=== PATIENT | male | born 1945 | race Caucasian/White ===

== ENCOUNTER 2016-11-28 07:35 | Day surgery (SDC) | payer MEDICARE ==
[2016-11-26 15:22] VITALS: BMI 26.5
[~2016-11-28 07:35] MED LIST: LACTATED RINGERS 1,000 ML IV SCH; LIDOCAINE 1% 20 ML VIAL (10MG/ML) FOR IV START INTRADERMA PRN
[2016-11-28 07:56] VITALS: RESP 16; TEMP 97.1
[2016-11-28] MEDS ORDERED: PROPOFOL 10 MG/ML 20 ML VIAL IV ONE (09:11)
[2016-11-28] MEDS ORDERED: LIDOCAINE 1% INJ 10MG/ML (20 ML MDV) ONE (09:11)
[2016-11-28] MEDS ORDERED: GLYCOPYRROLATE 0.2 MG/ML 2 ML VIAL ONE (09:11)
--- NOTE | 2016-11-28 09:24 | P.GSHP ---
History of Present Illness H&P Date: 11/28/16 Chief Complaint: Screening colonoscopy This is a 71-year-old male referred from Dr. Arron Caro. Patient safe for screening colonoscopy. He denies a significant GI complaints. This is his first colonoscopy. - Constitutional Constitutional: Reports as per HPI Past Medical History Past Medical History: Hyperlipidemia, Prostate Disorder Additional Past Medical History / Comment(s): PNEUMONIA 11/2015, IBS. History of Any Multi-Drug Resistant Organisms: None Reported Past Surgical History: Cholecystectomy, Orthopedic Surgery, Prostate Surgery Additional Past Surgical History / Comment(s): 10/19/15 ARTHRO OF RIGHT KNEE. PROSTATE SURGERY X 3., BILAT CATARACTS REMOVED, COLONOSCOPY Past Anesthesia/Blood Transfusion Reactions: No Reported Reaction Smoking Status: Former smoker - Past Family History Brother(s) Family Medical History: Coronary Artery Disease (CAD), Myocardial Infarction ([place] ) Father Additional Family Medical History / Comment(s): AORTIC ANEURYSM, NEVER RUPTURED Sister(s) Family Medical History: Cancer Additional Family Medical History / Comment(s): SISTER # 1 UTERINE CANCER. SISTER #2 BREAST CANCER Medications and Allergies Home Medications Medication Instructions Recorded Confirmed Type Atorvastatin [Lipitor] 20 mg PO QAM 10/12/15 11/28/16 History Cholestyramine (with Sugar) 4 gm PO DAILY 11/21/15 11/28/16 History [Cholestyramine Powder] Allergies Allergy/AdvReac Type Severity Reaction Status Date / Time No Known Allergies Allergy Verified 11/28/16 07:51 Surgical - Exam Vital Signs Temp Pulse Resp BP Pulse Ox 97.1 F L 57 L 16 143/72 95 11/28/16 07:54 11/28/16 07:54 11/28/16 07:54 11/28/16 07:54 11/28/16 07:54 - General well developed, no distress - Eyes PERRL - ENT normal pinna - Neck no masses - Respiratory normal expansion - Cardiovascular Rhythm: regular - Abdomen Abdomen: soft, non tender Assessment and Plan Plan: We'll perform screening colonoscopy.
--- NOTE | 2016-11-28 09:45 | P.OP ---
Date of Procedure: 11/28/16 Preoperative Diagnosis: Screening colonoscopy Postoperative Diagnosis: Sigmoid colon mass pathology pending Procedure(s) Performed: Colonoscopy Implants: Anesthesia: MAC Surgeon: Mykel Barker Pathology: other (Sigmoid colon mass) Condition: stable Disposition: PACU Indications for Procedure: Operative Findings: Description of Procedure: The patient's placed on the endoscopy table in the lateral position. He received IV sedation. Digital rectal exam was performed which revealed no abnormalities. The prostate was symmetric without nodules. The flexible colonoscope was then placed patient anus passed rotator entire colon. The ileocecal valve sutures. Scope was then withdrawn. The cecum, ascending colon , transverse colon appeared normal. In the descending colon there was some mild diverticular changes. The; there were more diverticula changes seen. And at the 30 cm carlos there was a large tumor seen this occupied approximately 50% of the lumen of the colon. This area is biopsied. It was too large to remove. The scope. The scope was withdrawn and remainder of the sigmoid colon and rectum appeared normal. The tumor was marked with the ink spot. The scope was withdrawn for patient.
[2016-11-28 10:00] VITALS: BP 125/77; PULSE 64
== END 2016-11-28 10:27 | disposition home or self-care (01) ==
LOC: ORWHC2ENDO 07:35
PROVIDERS: ATTEND Surgery
DX: Z12.11 Encounter for screening for malignant neoplasm of colon (principal); C18.7 Malignant neoplasm of sigmoid colon; E78.5 Hyperlipidemia, unspecified; Z87.891 Personal history of nicotine dependence; Z79.899 Other long term (current) drug therapy
CPT/HCPCS: 88305; 45380; 45381; J2001; J2704; 44404

== ENCOUNTER → 2016-12-09 | Outpatient (CLI) | payer MEDICARE | END | disposition home or self-care (01) | LOC: LABPAT 14:43 | PROVIDERS: ATTEND Surgery | DX: Z01.810 Encounter for preprocedural cardiovascular examination (principal) | CPT/HCPCS: 93005 ==

== ENCOUNTER 2016-12-11 09:59 | Inpatient (IN) | payer MEDICARE ==
[~2016-12-11 09:59] MED LIST changes: +DEXAMETHASONE SOD PHOSPHATE 10 MG/ML 1 ML VIAL IV ONE; +HEPARIN SODIUM,PORCINE 5,000 UNIT/ML 1 ML VIAL SQ ONE; +HYDROmorphone 1 MG/ML 1 ML SYRINGE IVP PRN; +MIDAZOLAM 2 MG/2 ML VIAL IV PRN; +ONDANSETRON 4 MG/2 ML VIAL IVP ONE; +SCOPOLAMINE 1.5MG/72HR PATCH TRANSDERM ONE; +ceFAZolin 2 GM in SODIUM CHLORIDE 0.9% 100 ML IVPB ONE; +metroNIDAZOLE-NS PMX 500 MG in SALINE 1 100ML.BAG IVPB ONE
[2016-12-11] MEDS ORDERED: MIDAZOLAM 2 MG/2 ML VIAL IV ONE ×2 (14:37→14:42)
[2016-12-11] MEDS ORDERED: fentaNYL (PF) 50 MCG/ML 2 ML AMP IV ONE ×2 (14:37→14:42)
[2016-12-11] MEDS ORDERED: ONDANSETRON 4 MG/2 ML VIAL IVP PRN ×2 (15:14→18:38)
[2016-12-11] MEDS ORDERED: diphenhydrAMINE 50 MG/ML 1 ML VIAL IVP PRN (15:14)
[2016-12-11] MEDS ORDERED: NALOXONE 0.4 MG/ML 1 ML VIAL IV PRN (15:14)
--- NOTE | 2016-12-11 15:28 | P.GSHP ---
History of Present Illness H&P Date: 12/11/16 Chief Complaint: Sigmoid colon cancer This a 71-year-old male who underwent recent colonoscopy. 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 He presents today for low anterior resection. Patient aware the risks of surgery including colostomy. Past Medical History Past Medical History: Hyperlipidemia, Prostate Disorder Additional Past Medical History / Comment(s): PNEUMONIA 11/2015, IBS. History of Any Multi-Drug Resistant Organisms: None Reported Past Surgical History: Cholecystectomy, Orthopedic Surgery, Plyoromyotomy, Prostate Surgery Additional Past Surgical History / Comment(s): 11/28/16 COLONOSCOPY POSITIVE FOR CA. 10/19/15 ARTHRO OF RIGHT KNEE. PROSTATE SURGERY X 3(BPH). BILAT CATARACTS REMOVED, COLONOSCOPY Past Anesthesia/Blood Transfusion Reactions: No Reported Reaction Past Psychological History: No Psychological Hx Reported Smoking Status: Former smoker Past Alcohol Use History: None Reported Additional Past Alcohol Use History / Comment(s): SMOKING: (QUIT 35 YRS AGO ( 1981), SMOKED FOR 10 YRS, PPD:1) Past Drug Use History: None Reported - Past Family History Brother(s) Family Medical History: Coronary Artery Disease (CAD), Myocardial Infarction ([place] ) Father Additional Family Medical History / Comment(s): AORTIC ANEURYSM, NEVER RUPTURED Sister(s) Family Medical History: Cancer Additional Family Medical History / Comment(s): SISTER # 1 UTERINE CANCER. SISTER #2 BREAST CANCER Medications and Allergies Home Medications Medication Instructions Recorded Confirmed Type Atorvastatin [Lipitor] 20 mg PO QAM 10/12/15 12/09/16 History Cholestyramine (with Sugar) 4 gm PO DAILY 11/21/15 12/09/16 History [Cholestyramine Powder] Allergies Allergy/AdvReac Type Severity Reaction Status Date / Time No Known Allergies Allergy Verified 12/11/16 13:58 Surgical - Exam Vital Signs Temp Pulse Resp BP Pulse Ox 97.6 F 57 L 16 133/67 95 12/11/16 14:02 12/11/16 14:02 12/11/16 14:02 12/11/16 14:02 12/11/16 14:02 - General well developed, no distress - Eyes PERRL - ENT normal pinna - Neck no masses - Respiratory normal expansion - Cardiovascular Rhythm: regular - Abdomen Abdomen: soft, non tender Assessment and Plan Plan: Sigmoid colon cancer. We'll perform low anterior resection
[2016-12-11] MEDS ORDERED: SUCCINYLCHOLINE CHLORIDE 100 MG/5 ML SYR IV ONE (16:34)
[2016-12-11] MEDS ORDERED: PHENYLEPHRINE-0.9% NACL SYG 1 MG/10 ML SYRINGE ONE (16:34)
[2016-12-11] MEDS ORDERED: NEOSTIGMINE 1 MG/ML 10 ML VIAL ONE (16:34)
[2016-12-11] MEDS ORDERED: LIDOCAINE 1% INJ 10MG/ML (20 ML MDV) ONE (16:34)
[2016-12-11] MEDS ORDERED: fentaNYL (PF) 50 MCG/ML 2 ML AMP ONE (16:34)
[2016-12-11] MEDS ORDERED: GLYCOPYRROLATE 0.2 MG/ML 2 ML VIAL ONE (16:34)
[2016-12-11] MEDS ORDERED: PROPOFOL 10 MG/ML 20 ML VIAL IV ONE (16:34)
[2016-12-11] MEDS ORDERED: ROCURONIUM BROMIDE 10 MG/ML 10 ML VIAL IV ONE (16:34)
[2016-12-11] MEDS ORDERED: LACTATED RINGERS 1,000 ML IV ONE (17:45)
[2016-12-11] MEDS: BUPIVACAINE (PF) 0.5% 37.5 ML, fentaNYL (PF) 625 MCG in SODIUM CHLORIDE 0.9% 200 ML EPIDURAL PRN ×2 (18:30→19:08)
[2016-12-11] MEDS ORDERED: HYDROmorphone 1 MG/ML 1 ML SYRINGE IVP PRN (18:38)
[2016-12-11] MEDS ORDERED: BENZOCAINE/MENTHOL LOZENG 1 EACH LOZENGE MUCOUS MEM PRN (18:38)
--- NOTE | 2016-12-11 18:38 | P.OP ---
Date of Procedure: 12/11/16 Preoperative Diagnosis: Colon cancer Postoperative Diagnosis: Colon cancer Procedure(s) Performed: Low anterior resection Implants: Anesthesia: ROBERTO Surgeon: Mykel Barker Estimated Blood Loss (ml): 50 Pathology: other (Sigmoid colon) Condition: stable Disposition: PACU Indications for Procedure: Operative Findings: Description of Procedure: The patient's placed on the operating table in the supine position. He received general anesthesia. His abdomen was prepped and draped usual sterile fashion. The abdomen was entered through a low midline incision. The Bookwalter retractors placed a wound. The abdomen was explored. The liver felt normal. The small bowel appeared normal. The right colon transverse colon and descending colon appeared normal. The sigmoid colon was adherent to the lateral pelvic wall.; Had been tattooed. The tattoo carlos was proximal to the lesion. The lesion could be palpated through the sigmoid colon. The sigmoid colon was immobilized medially by dividing the adhesions to the sigmoid colon. And then the; was transected using the GI stapler. After the proximal sigmoid colon was transected. Using the LigaSure device the mesentery the; was divided down to the mesorectum and the rectum was transected with a GI stapler. The pursestring device was placed on the proximal colon and then the pursestring was opened and the anvil for the 25 mm EEA stapler was placed into the colon and then the pursestring was secured. The executive marketing assistant placed the EEA stapler in the anus and then the spike was driven through the rectal staple line. The amylase connected to the stapler kelby and closed and fired the stapler was withdrawn. 2 intact tissue rings were withdrawn. Using a HIDA The proximal colon was occluded and then using a rigid sigmoidoscope the rectum was insufflated with air. There is enough air insufflation that the air with escape from the anus. There is no evidence of any extravasation of air at the anastomosis. At this point the abdomen was irrigated. The fascia was closed with looped #1 PDS suture. Skin was closed kelby. Patient was sent to recovery room stable condition.
[2016-12-11] MEDS: D5-0.45% NACL WITH KCL 20MEQ/L 1,000 ML IV SCH (20:24)
[2016-12-11 21:04] LABS: Anion Gap 8 mmol/L; Blood Urea Nitrogen 14 mg/dL (9-20); Calcium 8.4 mg/dL (8.4-10.2); Carbon Dioxide 24 mmol/L (22-30); Chloride 106 mmol/L (98-107); Glucose 135 mg/dL (74-99); Non-African American GFR(MDRD) 58 (>60 ml/min/1.73 sqM); Potassium 4.4 mmol/L (3.5-5.1); Sodium 138 mmol/L (137-145)
[2016-12-11 21:28] LABS: Basophils % (A) 0 %; CH 30.4; CHCM 33.3; Eosinophils % (A) 0 %; HCT 46.8 % (39.0-53.0); HDW 2.47; HGB 15.2 gm/dL (13.0-17.5); Luc # (Auto) 0.03; Luc % (Auto) 0; Lymphocytes # (A) 1.2 k/uL (1.0-4.8); Lymphocytes % (A) 8 %; MCH 29.7 pg (25.0-35.0); MCHC 32.4 g/dL (31.0-37.0); MCV 91.6 fL (80.0-100.0); Mean Platelet Volume 7.3; Monocytes # (A) 0.3 k/uL (0-1.0); Monocytes % (A) 2 %; Neutrophils # (A) 14.4 k/uL (1.3-7.7); Neutrophils % (A) 90 %; RDW 13.7 % (11.5-15.5); WBC (Perox) 15.48
[2016-12-11] MEDS: HEPARIN SODIUM,PORCINE 5,000 UNIT/ML 1 ML VIAL SQ SCH (23:32)
[2016-12-12] MEDS: D5-0.45% NACL WITH KCL 20MEQ/L 1,000 ML IV SCH ×2 (03:44→12:12)
[2016-12-12] MEDS: HEPARIN SODIUM,PORCINE 5,000 UNIT/ML 1 ML VIAL SQ SCH ×3 (08:22→23:15)
--- NOTE | 2016-12-12 09:13 | P.PN ---
Progress Note - Text Postop day 1 status post colectomy, under general endotracheal anesthesia and epidural catheter placed for postoperative analgesia, vital signs stable, visual and verbal scale 0/10, patient on continuous infusion of fentanyl/ bupivacaine at 7 mL per hour , epidural site. No erythema, no tenderness, patient had no motor deficit. Assessment and plan= acute postop pain , adequate pain control will continue the same management, continue epidural infusion fentanyl/bupivacaine at 7 mL
--- NOTE | 2016-12-12 17:56 | P.PN ---
Progress Note - Text The patient is postoperative day 1 from low anterior resection for colon cancer. He is doing quite well. He's been a bleeding polyp. On exam his vital signs are stable. His abdomen soft. His incision site is clean dry and intact. Patient will remain on clear liquid diet. Hopefully he'll be discharged home the next 48-72 hours.
[2016-12-12] MEDS: BUPIVACAINE (PF) 0.5% 37.5 ML, fentaNYL (PF) 625 MCG in SODIUM CHLORIDE 0.9% 200 ML EPIDURAL PRN (18:26)
[2016-12-13] MEDS: D5-0.45% NACL WITH KCL 20MEQ/L 1,000 ML IV SCH ×4 (06:06→21:40)
[2016-12-13] MEDS: HEPARIN SODIUM,PORCINE 5,000 UNIT/ML 1 ML VIAL SQ SCH ×3 (07:47→23:37)
--- NOTE | 2016-12-13 09:37 | P.PN ---
Progress Note - Text Postop day 2 from low anterior resection, epidural catheter inserted for postop pain control. Epidural solution: Bupivacaine 0.075 % with fentanyl 2.5 MCG's/ml Patient pain is well controlled with visual analog score of 0-1/10. Reports some pain with movement. No nausea vomiting, weakness or numbness in the legs or headache reported by the patient. Slight itching present. Plan: To continue the epidural infusion at the current rate.
[2016-12-13] MEDS: NALBUPHINE 10 MG/ML AMPUL IV PRN ×2 (11:08→20:23)
--- NOTE | 2016-12-13 16:46 | P.PN ---
Subjective Principal diagnosis: The patient is status post low anterior resection of the colon for colon cancer The patient is seen on rounds. He's tolerating clear liquids and is hungry. Pain is well-controlled. No nausea or vomiting. He has been ambulating in the halls. Objective - Vital Signs Vital signs: Vital Signs Temp 97.4 F L 12/13/16 14:22 Pulse 52 L 12/13/16 14:22 Resp 16 12/13/16 14:22 BP 141/64 12/13/16 14:22 Pulse Ox 95 12/13/16 14:22 Intake & Output 12/12/16 12/13/16 12/13/16 18:59 06:59 18:59 Intake Total 9902 492 2221 Output Total 1800 1450 Balance 1000 -1320 225 Intake: Intake, IV Titration 1000 875 Amount D5-0.45% NaCl with KCl 1000 875 20Meq/l 1,000 ml @ 125 mls/hr IV .Q8H [facility] Rx#: [id number] Oral 800 Other 480 Output: Urine 1800 1450 Other: Voiding Method Indwelling Catheter Indwelling Catheter Indwelling Catheter - Constitutional General appearance: Present: cooperative, no acute distress - Respiratory Respiratory: bilateral: CTA - Gastrointestinal General gastrointestinal: Present: decreased bowel sounds, soft Localized gastrointestinal: surgical scar: diffuse (Dressing is intact with some bloody drainage) - Labs CBC & Chem 7: 12/11/16 20:36 12/11/16 20:36 Assessment and Plan (1) Colon cancer Status: Acute Plan: We will advance his diet. Encouraged activity. Anesthesia was monitoring the epidural. Progressing well.
[2016-12-13] MEDS: BUPIVACAINE (PF) 0.5% 37.5 ML, fentaNYL (PF) 625 MCG in SODIUM CHLORIDE 0.9% 200 ML EPIDURAL PRN (19:52)
[2016-12-14] MEDS: D5-0.45% NACL WITH KCL 20MEQ/L 1,000 ML IV SCH ×2 (05:47→12:00)
[2016-12-14 08:31] LABS: CH 30.3; CHCM 32.8; HCT 43.1 % (39.0-53.0); HDW 2.42; MCH 30.2 pg (25.0-35.0); MCHC 32.6 g/dL (31.0-37.0); MCV 92.9 fL (80.0-100.0); Mean Platelet Volume 7.6; RBC 4.64 m/uL (4.30-5.90); RDW 13.5 % (11.5-15.5); WBC 9.4 k/uL (3.8-10.6)
[2016-12-14] MEDS: HEPARIN SODIUM,PORCINE 5,000 UNIT/ML 1 ML VIAL SQ SCH ×3 (08:51→23:51)
[2016-12-14 09:08] LABS: Anion Gap 7 mmol/L; Blood Urea Nitrogen 10 mg/dL (9-20); Calcium 8.6 mg/dL (8.4-10.2); Carbon Dioxide 25 mmol/L (22-30); Chloride 106 mmol/L (98-107); Glucose 142 mg/dL (74-99); Non-African American GFR(MDRD) >60 (>60 ml/min/1.73 sqM); Potassium 4.8 mmol/L (3.5-5.1); Sodium 138 mmol/L (137-145)
--- NOTE | 2016-12-14 10:05 | P.PN ---
Progress Note - Text 09 Anesthesia POD 3. Status Post colectomy under general endotracheal anesthesia with an epidrual catheter placed at approximately T12 for post surgical pain releif. VAS (1, 3) with Bupivicaine 0.0625 % and fentanyl 2.5 mcg / cc running at [7] cc / hr. Lower extremity strength (4/4). No sedation. Site looks OK. Assessment: Adequate pain relief. Plan: Discontinue epidural catheter today was alternative analgesia by surgeon or hospitalist.
[2016-12-14] MEDS: NALBUPHINE 10 MG/ML AMPUL IV PRN (11:10)
--- NOTE | 2016-12-14 14:56 | P.PN ---
Subjective Principal diagnosis: The patient is status post low anterior resection of the colon for colon cancer The patient is doing well. His catheter was removed this morning. There was some leakage around it. Rating a diet. No nausea or vomiting. Objective - Vital Signs Vital signs: Vital Signs Temp 98 F 12/14/16 13:57 Pulse 55 L 12/14/16 13:57 Resp 16 12/14/16 13:57 BP 134/71 12/14/16 13:57 Pulse Ox 94 L 12/14/16 13:57 Intake & Output 12/13/16 12/14/16 12/14/16 18:59 06:59 18:59 Intake Total 1675 1528.033 980 Output Total 1450 2500 1100 Balance 225 -971.967 -120 Intake: Intake, IV Titration 875 1178.033 800 Amount Bupivacaine (Pf) 0.5% 37. 178.033 5 ml fentaNYL (PF) 625 mcg In Sodium Chloride 0. 9% 200 ml @ Per Protocol EPIDURAL .Q0M PR[facility] Rx#: [id number] D5-0.45% NaCl with KCl 875 1000 800 20Meq/l 1,000 ml @ 125 mls/hr IV .Q8H [facility] Rx#: [id number] Oral 800 350 180 Output: Urine 1450 2500 1100 Uretheral (Powers) 1100 Other: Voiding Method Indwelling Catheter Indwelling Catheter Indwelling Catheter # Voids 3 - Constitutional General appearance: Present: cooperative, no acute distress - Respiratory Respiratory: bilateral: CTA - Cardiovascular Rhythm: regular - Gastrointestinal General gastrointestinal: Present: normal bowel sounds, soft Localized gastrointestinal: surgical scar: diffuse (Dressing is intact with dried blood) - Labs CBC & Chem 7: 12/14/16 08:19 12/14/16 08:19 Labs: Abnormal Lab Results - Last 24 Hours (Table) 12/14/16 Range/Units 08:19 Glucose 142 H (74-99) mg/dL Assessment and Plan (1) Colon cancer Status: Acute Plan: Hep-Lock IV. Monitoring to make sure easily able to urinate okay. Anticipate discharge in the next day or 2.
--- NOTE | 2016-12-15 07:16 | PN ---
DATE OF SERVICE: 12/14/16 I am covering for Dr. Mendoza. This 71-year-old gentleman was admitted after low anterior resection for possible colon cancer is being closely monitored. No chest pain. No palpitations. No fever. PHYSICAL EXAMINATION: On exam, alert and oriented times three. Pulse 55. Blood pressure 130/77. Respiratory rate 16. Temperature 97 degrees. Pulse ox 94% on room air. HEENT: Conjunctivae normal. NECK: No JVD. Cardiovascular: S1, S2 muffled. Respiratory: Breath sounds diminished at the bases. A few scattered rhonchi and no crackles. Abdomen soft. Status post surgery. Legs, no edema. No swelling. Nervous system: No focal deficits. LABS: CBC within normal limits. ASSESSMENT: 1. Status post low anterior resection for colon cancer. 2. Hyperlipidemia. 3. History of pneumonia. 4. History of cholecystectomy. RECOMMENDATIONS AND DISCUSSION: In this 71 -year-old gentleman presented with multiple complex medical issues. We will monitor the patient closely. Continue the current medications, continue with symptomatic treatment. Incentive spirometry. White count is normalized at this time. Continue the rest of the medication. DVT prophylaxis. We will follow the patient closely with surgery. Further recommendations to follow. MTDD
[2016-12-15] MEDS: HEPARIN SODIUM,PORCINE 5,000 UNIT/ML 1 ML VIAL SQ SCH ×3 (07:50→23:32)
[2016-12-15] MEDS ORDERED: HYDROcodone/APAP 5-325MG 1 EACH TAB PO PRN ×2 (09:24)
--- NOTE | 2016-12-15 12:20 | P.PN ---
Subjective Principal diagnosis: The patient is status post low anterior resection of the colon for colon cancer The patient was seen earlier this morning. He was tolerating a diet. Not had any significant flatus or bowel movement. Not having any significant pain. Nursing called and said he did have a small loose bowel movement was some blood present. Objective - Vital Signs Vital signs: Vital Signs Temp 98.2 F 12/15/16 07:00 Pulse 58 L 12/15/16 08:00 Resp 16 12/15/16 08:00 BP 145/70 12/15/16 07:00 Pulse Ox 93 L 12/15/16 07:00 Intake & Output 12/14/16 12/15/16 12/15/16 18:59 06:59 18:59 Intake Total 1220 600 180 Output Total 1100 Balance 120 600 180 Intake: Intake, IV Titration 800 Amount D5-0.45% NaCl with KCl 800 20Meq/l 1,000 ml @ 125 mls/hr IV .Q8H [facility] Rx#: [id number] Oral 420 600 180 Output: Urine 1100 Uretheral (Powers) 1100 Other: Voiding Method Indwelling Catheter Toilet # Voids 2 4 1 # Bowel Movements 1 - Constitutional General appearance: Present: cooperative, no acute distress - Respiratory Respiratory: bilateral: CTA - Gastrointestinal General gastrointestinal: Present: distended (Mildly), normal bowel sounds, soft Localized gastrointestinal: surgical scar: diffuse (Dressings intact) - Labs CBC & Chem 7: 12/14/16 08:19 12/14/16 08:19 Assessment and Plan (1) Colon cancer Status: Acute Plan: Monitor for any signs of ongoing bleeding. He is progressing fairly well and the blood is likely just some oozing from his anastomosis.
[2016-12-15 17:08] LABS: Basophils # (A) 0.1 k/uL (0-0.2); Basophils % (A) 1 %; CH 29.9; CHCM 33.1; Eosinophils # (A) 0.4 k/uL (0-0.7); Eosinophils % (A) 5 %; HCT 45.5 % (39.0-53.0); HDW 2.37; HGB 15.5 gm/dL (13.0-17.5); Luc # (Auto) 0.16; Luc % (Auto) 2; Lymphocytes # (A) 2.7 k/uL (1.0-4.8); Lymphocytes % (A) 28 %; MCH 30.8 pg (25.0-35.0); MCV 90.7 fL (80.0-100.0); Mean Platelet Volume 7.3; Monocytes # (A) 0.8 k/uL (0-1.0); Monocytes % (A) 8 %; Neutrophils # (A) 5.5 k/uL (1.3-7.7); Neutrophils % (A) 57 %; RBC 5.02 m/uL (4.30-5.90); RDW 12.9 % (11.5-15.5); WBC 9.6 k/uL (3.8-10.6); WBC (Perox) 9.59
[2016-12-15 17:15] LABS: Prothrombin Time 10.1 sec (9.0-12.0)
[2016-12-15 17:16] LABS: Partial Thromboplastin Time 23.6 sec (22.0-30.0)
--- NOTE | 2016-12-16 06:43 | PN ---
DATE OF SERVICE: 12/15/2016 I am covering for Dr. Mendoza. This 71-year-old gentleman admitted after low anterior resection also complaining of some bleeding per rectum. The hemoglobin was 14 yesterday. No chest pain or palpitation. No fever. On exam, alert and oriented x3. The pulse is 57, blood pressure 157/75, respirations 17, temperature 98 degrees, pulse ox 94% on room air. HEENT: Conjunctivae clear. NECK: No jugular venous distention. CARDIOVASCULAR: S1 and S2, muffled. RESPIRATORY: Breath sounds diminished at the bases. No rhonchi, no crackles. ABDOMEN: Soft. Status post surgery. Bowel sounds present. LEGS: No edema, no swelling. NERVOUS SYSTEM: No focal deficits. LABS: WBC 9.4 and hemoglobin 14 yesterday. ASSESSMENT: 1. Status post low anterior resection for colon cancer. 2. Rule out a lower gastrointestinal bleed. 3. Hyperlipidemia. 4. History of pneumonia. 5. History of cholecystectomy. RECOMMENDATIONS AND DISCUSSION: Recommend to continue current medications. Continue with monitoring and symptomatic treatment. Otherwise, at this time I would recommend repeat hemoglobin. Continue the rest of the medications and Dr. Mendoza will follow. Would also recommend PT coagulation workup also. Otherwise see orders for further details. Discussed with staff. LO
[2016-12-16 06:54] LABS: Basophils # (A) 0.1 k/uL (0-0.2); Basophils % (A) 1 %; CH 30.4; Eosinophils # (A) 0.7 k/uL (0-0.7); Eosinophils % (A) 8 %; HCT 48.4 % (39.0-53.0); HDW 2.32; HGB 15.4 gm/dL (13.0-17.5); Luc # (Auto) 0.18; Luc % (Auto) 2; Lymphocytes # (A) 2.6 k/uL (1.0-4.8); Lymphocytes % (A) 28 %; MCH 29.5 pg (25.0-35.0); MCHC 31.8 g/dL (31.0-37.0); MCV 92.7 fL (80.0-100.0); Mean Platelet Volume 7.4; Monocytes # (A) 0.7 k/uL (0-1.0); Monocytes % (A) 8 %; Neutrophils # (A) 4.9 k/uL (1.3-7.7); Neutrophils % (A) 54 %; RBC 5.22 m/uL (4.30-5.90); WBC 9.1 k/uL (3.8-10.6); WBC (Perox) 9.17
[2016-12-16 07:05] VITALS: RESP 18
[2016-12-16] MEDS: HEPARIN SODIUM,PORCINE 5,000 UNIT/ML 1 ML VIAL SQ SCH ×2 (08:15→15:47)
[2016-12-16 14:27] VITALS: BP 137/67; PULSE 62; TEMP 98.1
--- NOTE | 2016-12-16 16:55 | P.DS ---
Providers Date of admission: 12/11/16 12:40 Expected date of discharge: 12/16/16 Attending physician: Mykel Barker Consults: 12/12/16 08:53 Consult Physician Routine Consulting Provider: Arron Mendoza Reason/Comments: Medical management Do you want consulting provider notified?: Yes Primary care physician: Arron Mendoza [place] [facility] Course: This is a 71-year-old male who was diagnosed with colon cancer. Patient underwent low anterior resection. Please see hospital chart for details. Procedures: Low anterior resection Patient Condition at Discharge: Good Plan - Discharge Summary New Discharge Prescriptions: New Docusate [Colace] 100 mg PO BID #20 capsule HYDROcodone/APAP 7.5-325MG [Hiddenite 7.5] 1 each PO Q4H PRN #60 tab PRN Reason: Pain No Action Atorvastatin [Lipitor] 20 mg PO QAM Cholestyramine (with Sugar) [Cholestyramine Powder] 4 gm PO DAILY Discharge Medication List Atorvastatin [Lipitor] 20 mg PO QAM 10/12/15 [History] Cholestyramine (with Sugar) [Cholestyramine Powder] 4 gm PO DAILY 11/21/15 [ History] Docusate [Colace] 100 mg PO BID #20 capsule 12/16/16 [Rx] HYDROcodone/APAP 7.5-325MG [Hiddenite 7.5] 1 each PO Q4H PRN #60 tab 12/16/16 [Rx] Follow up Appointment(s)/Referral(s): Mykel Barker MD [STAFF PHYSICIAN] - 1 Week Patient Instructions/Handouts: Laparoscopic Bowel Resection (DC) Discharge Disposition: HOME SELF-CARE
== END 2016-12-16 17:37 | disposition home or self-care (01) | DRG 330 ==
LOC: EDSTATUS 11:05 → 2ORWHC 12:40 → 3SUR 18:12
PROVIDERS: ADMIT Surgery; ATTEND Surgery
PROC: 0DTN0ZZ Resection of Sigmoid Colon, Open Approach (ICD-10-PCS; principal; 2016-12-11 15:40)
DX: C18.7 Malignant neoplasm of sigmoid colon (principal); K62.5 Hemorrhage of anus and rectum; E78.5 Hyperlipidemia, unspecified; K58.9 Irritable bowel syndrome, unspecified; G89.18 Other acute postprocedural pain; N42.9 Disorder of prostate, unspecified; Z79.899 Other long term (current) drug therapy; Z90.49 Acquired absence of other specified parts of digestive tract; Z87.891 Personal history of nicotine dependence; Z87.01 Personal history of pneumonia (recurrent); Z98.42 Cataract extraction status, left eye; Z98.41 Cataract extraction status, right eye
CPT/HCPCS: 36415; 80048; 85025; 85027; 85610; 85730; 86850; 86900; 86901; 88309; 93005

== ENCOUNTER 2018-01-21 08:11 | Day surgery (SDC) | payer MEDICARE ==
[2018-01-14 15:37] VITALS: BMI 25.8
[~2018-01-21 08:11] MED LIST changes: -DEXAMETHASONE SOD PHOSPHATE 10 MG/ML 1 ML VIAL IV ONE; -HEPARIN SODIUM,PORCINE 5,000 UNIT/ML 1 ML VIAL SQ ONE; -HYDROmorphone 1 MG/ML 1 ML SYRINGE IVP PRN; -LACTATED RINGERS 1,000 ML IV SCH; -MIDAZOLAM 2 MG/2 ML VIAL IV PRN; -ONDANSETRON 4 MG/2 ML VIAL IVP ONE; -SCOPOLAMINE 1.5MG/72HR PATCH TRANSDERM ONE; -ceFAZolin 2 GM in SODIUM CHLORIDE 0.9% 100 ML IVPB ONE; -metroNIDAZOLE-NS PMX 500 MG in SALINE 1 100ML.BAG IVPB ONE
[2018-01-21 10:29] VITALS: TEMP 97.7
[2018-01-21] MEDS: LACTATED RINGERS 1,000 ML IV SCH ×2 (10:39→12:05)
[2018-01-21] MEDS ORDERED: PROPOFOL 10 MG/ML 20 ML VIAL IV ONE (12:07)
--- NOTE | 2018-01-21 12:12 | P.GSHP ---
History of Present Illness H&P Date: 01/21/18 Chief Complaint: History sigmoidof colon cancer 's is a 72-year-old male history: Cancer. Patient resents today for colonoscopy. He denies a significant GI complaints. Past Medical History Past Medical History: Cancer, Hyperlipidemia, Prostate Disorder Additional Past Medical History / Comment(s): PNEUMONIA 11/2015, IBS. COLON CANCER History of Any Multi-Drug Resistant Organisms: None Reported Past Surgical History: Cholecystectomy, Orthopedic Surgery, Prostate Surgery Additional Past Surgical History / Comment(s): 10/19/15 ARTHRO OF RIGHT KNEE. PROSTATE SURGERY X 3., BILAT CATARACTS REMOVED, COLONOSCOPY, COLON RESECTION R/ T COLON CANCER Past Anesthesia/Blood Transfusion Reactions: No Reported Reaction Smoking Status: Former smoker - Past Family History Brother(s) Family Medical History: Coronary Artery Disease (CAD), Myocardial Infarction ([place] ) Father Additional Family Medical History / Comment(s): AORTIC ANEURYSM, NEVER RUPTURED Sister(s) Family Medical History: Cancer Additional Family Medical History / Comment(s): SISTER # 1 UTERINE CANCER. SISTER #2 BREAST CANCER Medications and Allergies Home Medications Medication Instructions Recorded Confirmed Type Atorvastatin [Lipitor] 20 mg PO QAM 10/12/15 01/21/18 History Allergies Allergy/AdvReac Type Severity Reaction Status Date / Time No Known Allergies Allergy Verified 01/21/18 10:33 Surgical - Exam Vital Signs Temp Pulse Resp BP Pulse Ox 97.7 F 55 L 16 143/65 96 01/21/18 10:28 01/21/18 10:28 01/21/18 10:28 01/21/18 10:28 01/21/18 10:28 - General well developed - Eyes PERRL - ENT normal pinna - Neck no masses - Respiratory normal expansion - Cardiovascular Rhythm: regular - Abdomen Abdomen: soft, non tender Assessment and Plan Assessment: History of sigmoid colon cancer. We'll perform colonoscopy.
--- NOTE | 2018-01-21 12:25 | P.OP ---
Date of Procedure: 01/21/18 Preoperative Diagnosis: History of colon cancer Postoperative Diagnosis: Diverticulosis Procedure(s) Performed: Colonoscopy Anesthesia: MAC Surgeon: Mykel Barker Pathology: none sent Condition: stable Disposition: PACU Description of Procedure: The patient's placed on the endoscopy table in the lateral position. He received IV sedation. Digital rectal exam was performed which revealed no abnormalities. Flexible colonoscope was then placed patient anus and passed throughout the entire colon. The ileocecal valve was visualized. Cecum was examined. There was initially thought to be a small polyp in the cecum. However this was a suction polyp. The scope was withdrawn the remainder of the ascending colon and transverse colon appeared normal. In the descending colon there was mild diverticulosis. A shunt had a colorectal anastomosis. This was visualized the remaining rectum appeared normal. The scope was withdrawn for patient.
[2018-01-21 12:31] VITALS: RESP 18
[2018-01-21 13:06] VITALS: BP 152/72; PULSE 57
== END 2018-01-21 13:19 | disposition home or self-care (01) ==
LOC: ORWHC2ENDO 08:11
PROVIDERS: ATTEND Surgery
DX: Z12.11 Encounter for screening for malignant neoplasm of colon (principal); K57.30 Diverticulosis of large intestine without perforation or abscess without bleeding; Z85.038 Personal history of other malignant neoplasm of large intestine; Z90.49 Acquired absence of other specified parts of digestive tract; E78.5 Hyperlipidemia, unspecified; N42.9 Disorder of prostate, unspecified; Z79.899 Other long term (current) drug therapy; Z87.891 Personal history of nicotine dependence; I10 Essential (primary) hypertension
CPT/HCPCS: J2704; G0105

== ENCOUNTER 2019-02-18 08:08 | Day surgery (SDC) | payer MEDICARE ==
[2019-02-17 08:30] VITALS: BMI 26.6
[~2019-02-18 08:08] MED LIST changes: +LACTATED RINGERS 1,000 ML IV SCH
[2019-02-18 08:44] VITALS: RESP 16; TEMP 97.5
[2019-02-18] MEDS ORDERED: GLYCOPYRROLATE 0.2 MG/ML 2 ML VIAL ONE (11:50)
[2019-02-18] MEDS ORDERED: LIDOCAINE 1% INJ 10MG/ML (20 ML MDV) ONE (11:50)
[2019-02-18] MEDS ORDERED: IV FLUID CONTINUATION 1,000 ML IV ONE (11:50)
[2019-02-18] MEDS ORDERED: PROPOFOL 10 MG/ML 20 ML VIAL IV ONE (11:50)
--- NOTE | 2019-02-18 11:53 | P.GSHP ---
History of Present Illness H&P Date: 02/18/19 Chief Complaint: History of colon cancer This a 74-year-old male. History of sigmoid colon cancer. Patient rents today for colonoscopy. Denies a significant GI complaints. Past Medical History Past Medical History: Cancer, Hyperlipidemia, Prostate Disorder, Skin Disorder Additional Past Medical History / Comment(s): PNEUMONIA 2016, IBS, COLON CANCER, rash all over and hands burn and itch, cholesterol controled by diet, History of Any Multi-Drug Resistant Organisms: None Reported Past Surgical History: Bowel Resection, Cholecystectomy, Orthopedic Surgery, Prostate Surgery Additional Past Surgical History / Comment(s): arthroscopy RIGHT KNEE. PROSTATE SURGERY X 3., BILAT CATARACTS REMOVED, COLONOSCOPY, COLON RESECTION R/T COLON CANCER Past Anesthesia/Blood Transfusion Reactions: No Reported Reaction Smoking Status: Former smoker - Past Family History Brother(s) Family Medical History: Coronary Artery Disease (CAD), Myocardial Infarction ([place]) Father Additional Family Medical History / Comment(s): AORTIC ANEURYSM, NEVER RUPTURED Sister(s) Family Medical History: Cancer Additional Family Medical History / Comment(s): SISTER # 1 UTERINE CANCER. SISTER #2 BREAST CANCER Medications and Allergies Home Medications Medication Instructions Recorded Confirmed Type Fexofenadine/Pseudoephedrine 1 each PO DAILY 02/17/19 02/18/19 History [Lexi-D 24 Hour Tablet] Allergies Allergy/AdvReac Type Severity Reaction Status Date / Time No Known Allergies Allergy Verified 02/17/19 08:19 Surgical - Exam Vital Signs Temp Pulse Resp BP Pulse Ox 97.5 F L 51 L 16 140/62 97 02/18/19 08:43 02/18/19 08:43 02/18/19 08:43 02/18/19 08:43 02/18/19 08:43 - General well developed, well nourished, no distress - Eyes PERRL - ENT normal pinna - Neck no masses - Respiratory normal expansion - Cardiovascular Rhythm: regular - Abdomen Abdomen: soft, non tender Assessment and Plan Assessment: History of colon cancer. We'll perform colonoscopy.
--- NOTE | 2019-02-18 12:00 | P.OP ---
Date of Procedure: 02/18/19 Preoperative Diagnosis: History of colon cancer Postoperative Diagnosis: Diverticulosis Procedure(s) Performed: Colonoscopy Anesthesia: MAC Surgeon: Mykel Barker Pathology: none sent Condition: stable Disposition: PACU Description of Procedure: The patient's placed on the endoscopy table in the lateral position. He received IV sedation. Digital rectal exam was performed which revealed no abnormalities. Flexible colonoscope was then placed patient anus passed throughout the entire colon. The ileocecal valve was visualized. The cecum, ascending and transverse colon appeared normal. The descending colon had a few scattered diverticula. A shunt a previous sigmoid colectomy. The colorectal a nastomosis visualized. This appeared normal. The rectum appeared normal. Scope was withdrawn for patient. There is no incision any tumor in the entire colon.
[2019-02-18 12:36] VITALS: BP 118/65; PULSE 53
== END 2019-02-18 12:51 | disposition home or self-care (01) ==
LOC: ORWHC2ENDO 08:08
PROVIDERS: ATTEND Surgery
DX: Z12.11 Encounter for screening for malignant neoplasm of colon (principal); K57.30 Diverticulosis of large intestine without perforation or abscess without bleeding; K58.9 Irritable bowel syndrome, unspecified; E78.5 Hyperlipidemia, unspecified; L98.9 Disorder of the skin and subcutaneous tissue, unspecified; Z85.038 Personal history of other malignant neoplasm of large intestine; Z90.49 Acquired absence of other specified parts of digestive tract; Z79.899 Other long term (current) drug therapy; Z87.01 Personal history of pneumonia (recurrent); Z87.438 Personal history of other diseases of male genital organs; Z98.41 Cataract extraction status, right eye; Z98.42 Cataract extraction status, left eye; Z87.891 Personal history of nicotine dependence; Z82.49 Family history of ischemic heart disease and other diseases of the circulatory system; Z80.3 Family history of malignant neoplasm of breast; Z80.49 Family history of malignant neoplasm of other genital organs
CPT/HCPCS: J2001; J2704; G0105; 45378

== ENCOUNTER → 2020-04-18 | Outpatient (CLI) | payer MEDICARE ==
--- NOTE | 2020-04-19 09:24 | ECHOF ---
Referral Reason:R01.1 murmur MEASUREMENTS -------- HEIGHT: 162.6 cm WEIGHT: 86.2 kg BP: RVIDd: 3.1 cm (< 3.3) IVSd: 1.1 cm (0.6 - 1.1) LVIDd: 4.8 cm (3.9 - 5.3) LVPWd: 0.9 cm (0.6 - 1.1) IVSs: 1.6 cm LVIDs: 2.8 cm LVPWs: 1.3 cm LA Diam: 4.0 cm (2.7 - 3.8) LAESV Index (A-L): 24.13 ml/m Ao Diam: 2.9 cm (2.0 - 3.7) MV EXCURSION: 15.965 mm (> 18.000) MV EF SLOPE: 54 mm/s (70 - 150) EPSS: 0.4 cm MV E Maxim: 0.48 m/s MV DecT: 355 ms MV A Mxaim: 1.08 m/s MV E/A Ratio: 0.45 AV maxP.22 mmHg AV meanP.03 mmHg RAP: 5.00 mmHg RVSP: 30.44 mmHg FINDINGS -------- Sinus rhythm. This was a technically adequate study. The left ventricular size is normal. There is mild concentric left ventricular hypertrophy. Overa ll left ventricular systolic function is normal with, an EF between 55 - 60 %. The right ventricle is normal in size. Normal LA size by volume 22+/-6 ml/m2. The right atrial size is normal. There is moderate aortic valve sclerosis. There is moderate aortic stenosis present. Peak/mean gr adient across the Aortic Valve is 46.22mmHg / 18.03mmHg. The mitral valve leaflets are mildly thickened. Mild mitral regurgitation is present. The tricuspid valve appears structurally normal. Mild tricuspid regurgitation present. Right vent ricular systolic pressure is normal at < 35 mmHg. There is no pulmonic regurgitation present. The aortic root size is normal. There is no pericardial effusion. CONCLUSIONS -------- 1. There is mild concentric left ventricular hypertrophy. 2. Overall left ventricular systolic function is normal with, an EF between 55 - 60 %. 3. Normal LA size by volume 22+/-6 ml/m2. 4. There is moderate aortic valve sclerosis. 5. There is moderate aortic stenosis present. 6. Peak/mean gradient across the Aortic Valve is 46.22mmHg / 18.03mmHg. 7. Mild mitral regurgitation is present. 8. Mild tricuspid regurgitation present. 9. There is no pericardial effusion. [employer] SAFETY INSPECTOR: Mary Cruz RDCS
== END | disposition home or self-care (01) ==
LOC: RADECHMAIN 11:50
PROVIDERS: ATTEND Family Medicine
DX: I08.1 Rheumatic disorders of both mitral and tricuspid valves (principal)
CPT/HCPCS: 93306

== ENCOUNTER 2021-02-02 18:53 | Emergency (ER) | payer MEDICARE ==
[2021-02-02] MEDS ORDERED: SODIUM CHLORIDE 0.9% 500 ML 500 ML IV STA (19:33)
[2021-02-02] MEDS ORDERED: SODIUM CHLORIDE 0.9% 1,000 ML IV STA (19:33)
--- NOTE | 2021-02-02 19:36 | ED ---
Fever HPI - General Chief Complaint: Fever Stated Complaint: chills Time Seen by Provider: 02/02/21 19:20 Source: patient, RN notes reviewed, old records reviewed Mode of arrival: ambulatory Limitations: no limitations - History of Present Illness Initial Comments: 76-year-old male history of urinary tract infection the past also history of colon cancer who states he had the onset about 3 AM this morning of fevers chills shakes nausea vomiting this morning burning with urination no diarrhea no overt abdominal pain at this time no cough he has a slight runny nose which he believes is from seasonal ALLERGIES. No exposure to COVID-19 and he is aware of. No other complaints or modifying factors MD Complaint: fever, other - Related Data Home Medications Medication Instructions Recorded Confirmed Fexofenadine/Pseudoephedrine 1 each PO DAILY 02/17/19 02/18/19 [Lexi-D 24 Hour Tablet] Previous Rx's Medication Instructions Recorded Cephalexin [Keflex] 500 mg PO Q6HR 1 Days #40 cap 02/02/21 Allergies Allergy/AdvReac Type Severity Reaction Status Date / Time No Known Allergies Allergy Verified 02/02/21 19:07 Review of Systems ROS Statement: Those systems with pertinent positive or pertinent negative responses have been documented in the HPI. ROS Other: All systems not noted in ROS Statement are negative. Past Medical History Past Medical History: Cancer, Hyperlipidemia, Prostate Disorder, Skin Disorder Additional Past Medical History / Comment(s): PNEUMONIA 2016, IBS, COLON CANCER, rash all over and hands burn and itch, cholesterol controled by diet, History of Any Multi-Drug Resistant Organisms: None Reported Past Surgical History: Bowel Resection, Cholecystectomy, Orthopedic Surgery, Prostate Surgery Additional Past Surgical History / Comment(s): arthroscopy RIGHT KNEE. PROSTATE SURGERY X 3., BILAT CATARACTS REMOVED, COLONOSCOPY, COLON RESECTION R/T COLON CANCER Past Anesthesia/Blood Transfusion Reactions: No Reported Reaction Past Psychological History: No Psychological Hx Reported Past Alcohol Use History: Rare Past Drug Use History: None Reported - Past Family History Brother(s) Family Medical History: Coronary Artery Disease (CAD), Myocardial Infarction ([place]) Father Additional Family Medical History / Comment(s): AORTIC ANEURYSM, NEVER RUPTURED Sister(s) Family Medical History: Cancer Additional Family Medical History / Comment(s): SISTER # 1 UTERINE CANCER. SISTER #2 BREAST CANCER General Exam - General Exam Comments Initial Comments: This is a well-developed well-nourished awake alert oriented 3 male Limitations: no limitations General appearance: alert, in no apparent distress Head exam: Present: atraumatic, normocephalic, normal inspection Eye exam: Present: normal appearance, PERRL, EOMI. Absent: scleral icterus, conjunctival injection, periorbital swelling ENT exam: Present: mucous membranes dry Neck exam: Present: normal inspection. Absent: tenderness, meningismus, lymphadenopathy Respiratory exam: Present: normal lung sounds bilaterally. Absent: respiratory distress, wheezes, rales, rhonchi, stridor Cardiovascular Exam: Present: regular rate, normal rhythm, normal heart sounds. Absent: systolic murmur, diastolic murmur, rubs, gallop, clicks GI/Abdominal exam: Present: soft, normal bowel sounds. Absent: distended, tenderness, guarding, rebound, rigid Extremities exam: Present: normal inspection, full ROM, normal capillary refill. Absent: tenderness, pedal edema, joint swelling, calf tenderness Back exam: Present: normal inspection Neurological exam: Present: alert, oriented X3, CN II-XII intact Psychiatric exam: Present: normal affect, normal mood Skin exam: Present: warm, dry, intact, normal color. Absent: rash Course Vital Signs 02/02/21 02/02/21 19:03 19:30 Temperature 99 F 98.8 F Pulse Rate 92 62 Respiratory 20 16 Rate Blood Pressure 118/54 127/60 O2 Sat by Pulse 98 94 L Oximetry Medical Decision Making - Medical Decision Making I did a long discussion with the patient and his regarding the findings. Patient does have evidence of a UTI his viral testing was negative. Patient would like to go home he will be discharged we did discuss return parameters. She'll be discharged on oral medication is a follow-up with his doctor return when necessary we did encourage fluids. - Lab Data Result diagrams: 02/02/21 19:41 02/02/21 19:41 Lab Results 02/02/21 02/02/21 02/02/21 Range/Units 19:41 19:41 19:41 WBC 11.0 H (3.8-10.6) k/uL RBC 4.46 (4.30-5.90) m/uL Hgb 13.7 (13.0-17.5) gm/dL Hct 41.6 (39.0-53.0) % MCV 93.2 (80.0-100.0) fL MCH 30.7 (25.0-35.0) pg MCHC 32.9 (31.0-37.0) g/dL RDW 12.6 (11.5-15.5) % Plt Count 176 (150-450) k/uL MPV 7.8 Neutrophils % 82 % Lymphocytes % 8 % Monocytes % 8 % Eosinophils % 1 % Basophils % 0 % Neutrophils # 9.1 H (1.3-7.7) k/uL Lymphocytes # 0.8 L (1.0-4.8) k/uL Monocytes # 0.9 (0-1.0) k/uL Eosinophils # 0.1 (0-0.7) k/uL Basophils # 0.0 (0-0.2) k/uL Sodium 133 L (137-145) mmol/L Potassium 3.6 (3.5-5.1) mmol/L Chloride 104 (98-107) mmol/L Carbon Dioxide 22 (22-30) mmol/L Anion Gap 7 mmol/L BUN 18 (9-20) mg/dL Creatinine 1.08 (0.66-1.25) mg/dL Est GFR (CKD-EPI)AfAm 76 (>60 ml/min/1.73 sqM) Est GFR (CKD-EPI)NonAf 66 (>60 ml/min/1.73 sqM) Glucose 123 H (74-99) mg/dL Plasma Lactic Acid Pap[place] (0.7-2.0) mmol/L Calcium 8.5 (8.4-10.2) mg/dL Total Bilirubin 2.2 H (0.2-1.3) mg/dL AST 23 (17-59) U/L ALT 17 (4-49) U/L Alkaline Phosphatase 40 (38-126) U/L Total Protein 6.1 L (6.3-8.2) g/dL Albumin 3.5 (3.5-5.0) g/dL Urine Color Yellow Urine Appearance Cloudy (Clear) Urine pH 5.5 (5.0-8.0) Ur Specific [place] 1.031 (1.001-1.035) Urine Protein 1+ H (Negative) Urine Glucose (UA) Negative (Negative) Urine Ketones Negative (Negative) Urine Blood Large H (Negative) Urine Nitrite Positive (Negative) Urine Bilirubin Negative (Negative) Urine Urobilinogen <2.0 (<2.0) mg/dL Ur Leukocyte Esterase Large H (Negative) Urine RBC >182 H (0-5) /hpf Urine WBC >182 H (0-5) /hpf Urine WBC Clumps Moderate H (None) /hpf Urine Bacteria Occasional H (None) /hpf Urine Mucus Occasional H (None) /hpf Urine Yeast (Budding) Occasional H (None) /hpf Influenza Type A (PCR) (Not Detectd) Influenza Type B (PCR) (Not Detectd) RSV (PCR) (Not Detectd) SARS-CoV-2 (PCR) (Not Detectd) 02/02/21 02/02/21 Range/Units 19:41 19:41 WBC (3.8-10.6) k/uL RBC (4.30-5.90) m/uL Hgb (13.0-17.5) gm/dL Hct (39.0-53.0) % MCV (80.0-100.0) fL MCH (25.0-35.0) pg MCHC (31.0-37.0) g/dL RDW (11.5-15.5) % Plt Count (150-450) k/uL MPV Neutrophils % % Lymphocytes % % Monocytes % % Eosinophils % % Basophils % % Neutrophils # (1.3-7.7) k/uL Lymphocytes # (1.0-4.8) k/uL Monocytes # (0-1.0) k/uL Eosinophils # (0-0.7) k/uL Basophils # (0-0.2) k/uL Sodium (137-145) mmol/L Potassium (3.5-5.1) mmol/L Chloride (98-107) mmol/L Carbon Dioxide (22-30) mmol/L Anion Gap mmol/L BUN (9-20) mg/dL Creatinine (0.66-1.25) mg/dL Est GFR (CKD-EPI)AfAm (>60 ml/min/1.73 sqM) Est GFR (CKD-EPI)NonAf (>60 ml/min/1.73 sqM) Glucose (74-99) mg/dL Plasma Lactic Acid [place] 0.9 (0.7-2.0) mmol/L Calcium (8.4-10.2) mg/dL Total Bilirubin (0.2-1.3) mg/dL AST (17-59) U/L ALT (4-49) U/L Alkaline Phosphatase (38-126) U/L Total Protein (6.3-8.2) g/dL Albumin (3.5-5.0) g/dL Urine Color Urine Appearance (Clear) Urine pH (5.0-8.0) Ur Specific [place] (1.001-1.035) Urine Protein (Negative) Urine Glucose (UA) (Negative) Urine Ketones (Negative) Urine Blood (Negative) Urine Nitrite (Negative) Urine Bilirubin (Negative) Urine Urobilinogen (<2.0) mg/dL Ur Leukocyte Esterase (Negative) Urine RBC (0-5) /hpf Urine WBC (0-5) /hpf Urine WBC Clumps (None) /hpf Urine Bacteria (None) /hpf Urine Mucus (None) /hpf Urine Yeast (Budding) (None) /hpf Influenza Type A (PCR) Not Detected (Not Detectd) Influenza Type B (PCR) Not Detected (Not Detectd) RSV (PCR) Not Detected (Not Detectd) SARS-CoV-2 (PCR) Not Detected (Not Detectd) - Radiology Data Radiology results: report reviewed (Imaging reviewed no acute findings.), image reviewed Disposition Clinical Impression: Urinary tract infection, Febrile illness, acute Disposition: HOME SELF-CARE Condition: Good Instructions (If sedation given, give patient instructions): Fever in Adults (ED), Urinary Tract Infection in Men (ED), Dysuria (ED) Prescriptions: Cephalexin [Keflex] 500 mg PO Q6HR 1 Days #40 cap Is patient prescribed a controlled substance at d/c from ED?: No Referrals: Arron Mendoza DO [Primary Care Provider] - 1-2 days
--- NOTE | 2021-02-02 20:12 | XR ---
EXAMINATION TYPE: XR chest 1V portable DATE OF EXAM: 02/02/2021 COMPARISON: 11/30/2015 HISTORY: Fever TECHNIQUE: FINDINGS: Heart and mediastinum are normal. Lungs are clear. Diaphragm is normal. Bony thorax is norm al. There are chest leads. IMPRESSION: Normal chest. No change.
[2021-02-02 20:16] LABS: Appearance,Urine Cloudy (Clear); Bacteria,Urine Occasional /hpf; Bilirubin,Urine Negative (Negative); Blood,Urine Large (Negative); Budding Yeast,Urine Occasional /hpf; Color,Urine Yellow; Glucose,Urine (UA) Negative (Negative); Ketones,Urine Negative (Negative); Leukocyte Esterase,Urine Large (Negative); Mucus,Urine Occasional /hpf; Nitrite,Urine Positive (Negative); PH, Urine 5.5 (5.0-8.0); Protein,Urine 1+ (Negative); RBC,Urine >182 /hpf (0-5); Specific Gravity,Urine 1.031 (1.001-1.035); Urobilinogen,Urine <2.0 mg/dL (<2.0); WBC,Urine >182 /hpf (0-5)
[2021-02-02 20:32] LABS: Basophils % (A) 0 %; Eosinophils # (A) 0.1 k/uL (0-0.7); Eosinophils % (A) 1 %; HCT 41.6 % (39.0-53.0); HGB 13.7 gm/dL (13.0-17.5); Lymphocytes # (A) 0.8 k/uL (1.0-4.8); Lymphocytes % (A) 8 %; MCH 30.7 pg (25.0-35.0); MCHC 32.9 g/dL (31.0-37.0); MCV 93.2 fL (80.0-100.0); Mean Platelet Volume 7.8; Monocytes # (A) 0.9 k/uL (0-1.0); Monocytes % (A) 8 %; Neutrophils # (A) 9.1 k/uL (1.3-7.7); Neutrophils % (A) 82 %; Platelet Count 176 k/uL (150-450); RBC 4.46 m/uL (4.30-5.90); RDW 12.6 % (11.5-15.5)
[2021-02-02] MEDS ORDERED: cefTRIAXone IN SWFI 1,000 MG/10 ML SYRINGE IVP STA (20:38)
[2021-02-02 20:42] LABS: Albumin 3.5 g/dL (3.5-5.0); Calcium 8.5 mg/dL (8.4-10.2); Potassium 3.6 mmol/L (3.5-5.1); Total Bilirubin 2.2 mg/dL (0.2-1.3); Total Protein 6.1 g/dL (6.3-8.2)
[2021-02-02] MEDS ORDERED: CEPHALEXIN 500 MG CAP PO STA (21:27)
[2021-02-02 22:12] VITALS: BP 117/61; PULSE 54; RESP 18; TEMP 97.9
== END 2021-02-02 22:12 | disposition home or self-care (01) ==
LOC: EC 18:53
DX: N39.0 Urinary tract infection, site not specified (principal); R11.2 Nausea with vomiting, unspecified; Z90.49 Acquired absence of other specified parts of digestive tract; Z20.822 Contact with and (suspected) exposure to COVID-19
CPT/HCPCS: 36415; 80053; 83605; 85025; 81001; 87040; 87086; 87636; 71045; 99284; 96374; 96361; J0696

== ENCOUNTER → 2021-04-04 | Outpatient (CLI) | payer MEDICARE ==
--- NOTE | 2021-04-04 11:41 | CT ---
EXAMINATION TYPE: CT urogram wo/w con DATE OF EXAM: 04/04/2021 COMPARISON: None. HISTORY: Gross Hematuria CT DLP: 2626 mGycm, Automated Exposure Control for Dose Reduction was Utilized. CONTRAST: CT scan of the abdomen and pelvis is performed without oral and with IV Contrast, patient injected wi th 100 mL of Isovue 300. Urogram protocol. Three-D reconstructed images created on an independent wor kstation and reviewed. FINDINGS: Exam slightly suboptimal as the technologist forgot to perform noncontrast images per kel l protocol. KUB: No definitive renal calculi on initial cortical medullary postcontrast images. There is symmetri c uptake and excretion without concerning solid or cystic renal mass or hydronephrosis seen bilateral ly. No intraluminal calculus in the bladder. No suspicious eccentric mass. There is satisfactory opac ification of bilateral ureters without obstructing calculus or mass. LUNG BASES: No significant abnormality is appreciated. LIVER/GB: Cholecystectomy clips. PANCREAS: No significant abnormality is seen. SPLEEN: No significant abnormality is seen. ADRENALS: No significant abnormality is seen. BOWEL: Suboptimal evaluation of bowel without enteric contrast. Small sized hiatal hernia. No suspici ous small or large bowel dilatation. Diverticula in the sigmoid colon. Prior colonic resection and re -anastomosis sigmoid colon left pelvis axial image 109. PROSTATE/SEMINAL VESICLES: Markedly enlarged heterogeneous prostate consistent with BPH. LYMPH NODES: No greater than 1cm abdominal or pelvic lymph nodes are appreciated. OSSEOUS STRUCTURES: Moderate to severe disc space narrowing L2-L3 level with endplate sclerosis. OTHER: Moderate calcified plaque of the infrarenal aorta extends into branch vessels. IMPRESSION: Source of hematuria not identified.
== END | disposition home or self-care (01) ==
LOC: RADCTMAIN 09:20
PROVIDERS: ATTEND Urology
DX: R31.0 Gross hematuria (principal)
CPT/HCPCS: 82565; 84520; 74178; 36415; 74400; Q9967

== ENCOUNTER 2022-09-12 07:34 | Day surgery (SDC) | payer MEDICARE ==
[2022-09-06 17:46] VITALS: BMI 26.2
[2022-09-12] MEDS ORDERED: LACTATED RINGERS 1,000 ML IV SCH (08:04)
[2022-09-12 08:09] VITALS: TEMP 97.9
[2022-09-12] MEDS ORDERED: PROPOFOL 10 MG/ML 20 ML VIAL IV ONE (08:54)
--- NOTE | 2022-09-12 08:58 | P.GSHP ---
History of Present Illness H&P Date: 09/12/22 Chief Complaint: History of colon cancer This a 69-year-old male who presents today for colonoscopy. Patient previous history of sigmoid colon cancer. His surgery was 2017. Patient has no significant GI complaints. Past Medical History Past Medical History: Cancer, Hyperlipidemia, Pneumonia, Prostate Disorder, Skin Disorder Additional Past Medical History / Comment(s): IBS, COLON CANCER, rash all over hands burn and itch (just happens on occasion) History of Any Multi-Drug Resistant Organisms: None Reported Past Surgical History: Bowel Resection, Cholecystectomy, Orthopedic Surgery, Prostate Surgery Additional Past Surgical History / Comment(s): ARTHROSCOPY RIGHT KNEE, PROSTATE SURGERY X 3, BILAT CATARACTS REMOVED, COLONOSCOPY, COLON RESECTION R/T COLON CANCER Past Anesthesia/Blood Transfusion Reactions: No Reported Reaction Past Psychological History: No Psychological Hx Reported Smoking Status: Former smoker Past Alcohol Use History: None Reported Additional Past Alcohol Use History / Comment(s): QUIT smoking 1981, SMOKED FOR 10 YRS, 1 PPD Past Drug Use History: None Reported - Past Family History Brother(s) Family Medical History: Coronary Artery Disease (CAD), Myocardial Infarction ([place]) Father Additional Family Medical History / Comment(s): AORTIC ANEURYSM, NEVER RUPTURED Sister(s) Family Medical History: Cancer Additional Family Medical History / Comment(s): SISTER # 1 UTERINE CANCER. SISTER #2 BREAST CANCER Medications and Allergies Home Medications Medication Instructions Recorded Confirmed Type Atorvastatin [Lipitor] 5 mg PO HS 09/06/22 09/12/22 History Nf-Prevalite Powder 1 / PO DIRECTED 09/06/22 09/12/22 History Allergies Allergy/AdvReac Type Severity Reaction Status Date / Time No Known Allergies Allergy Verified 09/12/22 08:04 Surgical - Exam Vital Signs Temp Pulse Resp BP Pulse Ox 97.9 F 59 L 18 142/65 95 09/12/22 08:03 09/12/22 08:03 09/12/22 08:03 09/12/22 08:03 09/12/22 08:03 - General well developed, well nourished, no distress - Eyes PERRL - ENT normal pinna - Neck no masses - Respiratory normal expansion - Cardiovascular Rhythm: regular - Abdomen Abdomen: soft, non tender Assessment and Plan Assessment: History of sigmoid colon cancer. We'll perform colonoscopy.
--- NOTE | 2022-09-12 09:10 | P.OP ---
Date of Procedure: 09/12/22 Preoperative Diagnosis: History of colon cancer Postoperative Diagnosis: Diverticulosis No evidence of recurrent colon cancer Procedure(s) Performed: Colonoscopy Anesthesia: MAC Surgeon: Mykel Barker Pathology: none sent Condition: stable Disposition: PACU Description of Procedure: The patient's placed on the endoscopy table in the lateral position. He received IV sedation. Digital rectal exam was performed. This revealed no ebonized. The possible colonoscope was then placed patient anus and passed throughout the entire colon. The ileocecal valve was visualized. The cecum, ascending and transverse colon appeared normal. In the descending colon was a few scattered diverticuli. The scope was brought back and the rectum and the colorectal vessels was visualized. Rectum appeared normal. This appeared normal. Scope withdrawn for patient.
[2022-09-12 09:39] VITALS: BP 119/68; PULSE 56; RESP 16
== END 2022-09-12 09:40 | disposition home or self-care (01) ==
LOC: ORWHC2ENDO 07:34
PROVIDERS: ATTEND Surgery
DX: Z12.11 Encounter for screening for malignant neoplasm of colon (principal); K57.30 Diverticulosis of large intestine without perforation or abscess without bleeding; E78.5 Hyperlipidemia, unspecified; Z90.49 Acquired absence of other specified parts of digestive tract; Z85.038 Personal history of other malignant neoplasm of large intestine; Z98.890 Other specified postprocedural states; Z82.49 Family history of ischemic heart disease and other diseases of the circulatory system; Z87.891 Personal history of nicotine dependence
CPT/HCPCS: G0105; J2704; 45378

== ENCOUNTER 2022-11-22 15:46 | Emergency (ER) | payer MEDICARE ==
[2022-11-22 15:58] VITALS: RESP 16
[2022-11-22 16:21] LABS: Basophils % (A) 0 %; Eosinophils # (A) 0.1 k/uL (0-0.7); Eosinophils % (A) 1 %; HCT 45.1 % (39.0-53.0); HGB 15.2 gm/dL (13.0-17.5); Lymphocytes # (A) 1.3 k/uL (1.0-4.8); Lymphocytes % (A) 8 %; MCH 31.3 pg (25.0-35.0); MCHC 33.8 g/dL (31.0-37.0); MCV 92.8 fL (80.0-100.0); Mean Platelet Volume 7.7; Monocytes # (A) 0.9 k/uL (0-1.0); Monocytes % (A) 5 %; Neutrophils # (A) 13.5 k/uL (1.3-7.7); Neutrophils % (A) 85 %; Platelet Count 180 k/uL (150-450); RBC 4.86 m/uL (4.30-5.90); RDW 12.7 % (11.5-15.5)
[2022-11-22 16:25] LABS: INR 1.1 (<1.2); Prothrombin Time 11.3 sec (9.0-12.0)
--- NOTE | 2022-11-22 16:30 | ED ---
Dizziness HPI - General Chief Complaint: Dizziness Stated Complaint: dehydration Source: patient Mode of arrival: ambulatory Limitations: no limitations - History of Present Illness Initial Comments: 77-year-old male presenting to the ED with complaints of intermittent dizziness, chills, and upset stomach. Now notes dysuria 3 days ago however states that he has been drinking large quantities of water and reports that this has since improved. Denies chest pain or shortness of breath. No other complaints - Related Data Home Medications Medication Instructions Recorded Confirmed Atorvastatin [Lipitor] 5 mg PO HS 09/06/22 09/12/22 Nf-Prevalite Powder 1 / PO DIRECTED 09/06/22 09/12/22 Previous Rx's Medication Instructions Recorded Ciprofloxacin 500 mg PO Q12HR 14 Days #140 ml 11/22/22 Allergies Allergy/AdvReac Type Severity Reaction Status Date / Time No Known Allergies Allergy Verified 09/12/22 08:04 Review of Systems ROS Statement: Those systems with pertinent positive or pertinent negative responses have been documented in the HPI. ROS Other: All systems not noted in ROS Statement are negative. Past Medical History Past Medical History: Cancer, Hyperlipidemia, Pneumonia, Prostate Disorder, Skin Disorder Additional Past Medical History / Comment(s): IBS, COLON CANCER, rash all over hands burn and itch (just happens on occasion) History of Any Multi-Drug Resistant Organisms: None Reported Past Surgical History: Bowel Resection, Cholecystectomy, Orthopedic Surgery, Prostate Surgery Additional Past Surgical History / Comment(s): ARTHROSCOPY RIGHT KNEE, PROSTATE SURGERY X 3, BILAT CATARACTS REMOVED, COLONOSCOPY, COLON RESECTION R/T COLON CANCER Past Anesthesia/Blood Transfusion Reactions: No Reported Reaction Past Psychological History: No Psychological Hx Reported Smoking Status: Former smoker Past Alcohol Use History: None Reported Past Drug Use History: None Reported - Past Family History Brother(s) Family Medical History: Coronary Artery Disease (CAD), Myocardial Infarction ([place]) Father Additional Family Medical History / Comment(s): AORTIC ANEURYSM, NEVER RUPTURED Sister(s) Family Medical History: Cancer Additional Family Medical History / Comment(s): SISTER # 1 UTERINE CANCER. SISTER #2 BREAST CANCER General Exam Limitations: no limitations General appearance: alert Eye exam: Present: PERRL, EOMI Respiratory exam: Present: normal lung sounds bilaterally Cardiovascular Exam: Present: regular rate, normal rhythm, systolic murmur Neurological exam: Present: alert, oriented X3, CN II-XII intact (Finger-nose, [id number], rapid alternating hand movements intact) Psychiatric exam: Present: normal affect, normal mood Skin exam: Present: warm, dry Course Vital Signs 11/22/22 15:54 Temperature 98.6 F Pulse Rate 70 Respiratory 16 Rate Blood Pressure 113/52 O2 Sat by Pulse 96 Oximetry Medical Decision Making - Medical Decision Making Was pt. sent in by a medical professional or institution (, LUIS, MANAGER DOCUMENT CONTROL, urgent care, hospital, or fpc...) When possible be specific @ -No Did you speak to anyone other than the patient for history (EMS, parent, family, police, friend...)? What history was obtained from this source @ -No Did you review nursing and triage notes (agree or disagree)? Why? @ -I reviewed and agree with nursing and triage notes Were old charts reviewed (outside hosp., previous admission, EMS record, old EKG, old radiological studies, urgent care reports/EKG's, fpc records)? Report findings @ -No old charts were reviewed Differential Diagnosis (chest pain, altered mental status, abdominal pain women, abdominal pain men, vaginal bleeding, weakness, fever, dyspnea, syncope, headache, dizziness, GI bleed, back pain, seizure, CVA, palpatations, mental health, musculoskeletal)? @ -Differential Altered Mental Status: Hypoglycemia, DKA, hypercapnia, ETOH, overdose, CO poisoning, trauma, myxedema coma, HTN encephalopathy, infection, encephalitis, psychosis, intercranial hemorrhage, hepatic encephalopathy, meningitis, CVA, this is not meant to be an all-inclusive list EKG interpreted by me (3pts min.). @ -EKG shows a sinus rhythm without acute ST or T-wave changes X-rays interpreted by me (1pt min.). @ -None done CT interpreted by me (1pt min.). @ -None done U/S interpreted by me (1pt. min.). @ -None done What testing was considered but not performed or refused? (CT, X-rays, U/S, labs)? Why? @ -None What meds were considered but not given or refused? Why? @ -None Did you discuss the management of the patient with other professionals (pro fessionals i.e. , LUIS, MANAGER DOCUMENT CONTROL, lab, RT, psych nurse, social work lecturer, grind operator, teacher, consumer loan officer, registered nurse hh case manager)? Give summary @ -No Was smoking cessation discussed for >3mins.? @ -No Was critical care preformed (if so, how long)? @ -No Were there social determinants of health that impacted care today? How? (Homelessness, low income, unemployed, alcoholism, drug addiction, transporta tion, low edu. Level, literacy, decrease access to med. care, shelter, rehab)? @ -No Was there de-escalation of care discussed even if they declined (Discuss DNR or withdrawal of care, Hospice)? DNR status @ -No What co-morbidities impacted this encounter? (DM, HTN, Smoking, COPD, CAD, Cancer, CVA, ARF, Chemo, Hep., AIDS, mental health diagnosis, sleep apnea, morbid obesity)? @ -None Was patient admitted / discharged? Hospital course, mention meds given and route, prescriptions, significant lab abnormalities, going to OR and other pertinent info. @ -Discharge. Laboratory studies significant for a white blood cell count of 16, urine showed 102 white blood cells, leukocyte esterase. Otherwise chemistry panel unremarkable. CT head showed no acute findings. Patient started on IV antibiotics here. And discharged with ciprofloxacin 500 mg twice a day for 14 d ays. Advised to follow up with PCP. Discussed return precautions with patient and who verbalizes agreement. Undiagnosed new problem with uncertain prognosis? @ -No Drug Therapy requiring intensive monitoring for toxicity (Heparin, Nitro, Insulin, Cardizem)? @ -No Were any procedures done? @ -No Diagnosis/symptom? @ -Urinary tract infection Acute, or Chronic, or Acute on Chronic? @ -Acute Uncomplicated (without systemic symptoms) or Complicated (systemic symptoms)? @ -Uncomplicated Side effects of treatment? @ -No Exacerbation, Progression, or Severe Exacerbation? @ -No Poses a threat to life or bodily function? How? (Chest pain, [place], [place], pneumonia, PE, COPD, DKA, ARF, appy, cholecystitis, CVA, Diverticulitis, Homicidal, Suicidal, threat to staff... and all critical care pts) @ -No - Lab Data Result diagrams: 11/22/22 16:05 11/22/22 16:05 Lab Results 11/22/22 11/22/22 11/22/22 Range/Units 15:59 16:05 16:05 WBC 16.0 H (3.8-10.6) k/uL RBC 4.86 (4.30-5.90) m/uL Hgb 15.2 (13.0-17.5) gm/dL Hct 45.1 (39.0-53.0) % MCV 92.8 (80.0-100.0) fL MCH 31.3 (25.0-35.0) pg MCHC 33.8 (31.0-37.0) g/dL RDW 12.7 (11.5-15.5) % Plt Count 180 (150-450) k/uL MPV 7.7 Neutrophils % 85 % Lymphocytes % 8 % Monocytes % 5 % Eosinophils % 1 % Basophils % 0 % Neutrophils # 13.5 H (1.3-7.7) k/uL Lymphocytes # 1.3 (1.0-4.8) k/uL Monocytes # 0.9 (0-1.0) k/uL Eosinophils # 0.1 (0-0.7) k/uL Basophils # 0.0 (0-0.2) k/uL PT 11.3 (9.0-12.0) sec INR 1.1 (<1.2) Sodium (137-145) mmol/L Potassium (3.5-5.1) mmol/L Chloride (98-107) mmol/L Carbon Dioxide (22-30) mmol/L Anion Gap mmol/L BUN (9-20) mg/dL Creatinine (0.66-1.25) mg/dL Est GFR (CKD-EPI)AfAm (>60 ml/min/1.73 sqM) Est GFR (CKD-EPI)NonAf (>60 ml/min/1.73 sqM) Glucose (74-99) mg/dL Calcium (8.4-10.2) mg/dL Total Bilirubin (0.2-1.3) mg/dL AST (17-59) U/L ALT (4-49) U/L Alkaline Phosphatase (38-126) U/L Troponin I (0.000-0.034) ng/mL Total Protein (6.3-8.2) g/dL Albumin (3.5-5.0) g/dL Urine Color Dark Brown Urine Appearance Turbid (Clear) Urine pH 5.5 (5.0-8.0) Ur Specific [place] 1.033 (1.001-1.035) Urine Protein 2+ H (Negative) Urine Glucose (UA) Negative (Negative) Urine Ketones Trace H (Negative) Urine Blood Large H (Negative) Urine Nitrite Negative (Negative) Urine Bilirubin Negative (Negative) Urine Urobilinogen <2.0 (<2.0) mg/dL Ur Leukocyte Esterase Large H (Negative) Urine RBC >182 H (0-5) /hpf Urine WBC 102 H (0-5) /hpf Urine WBC Clumps Occasional H (None) /hpf Ur Squamous Epith Cells 3 (0-4) /hpf Urine Mucus Many H (None) /hpf 11/22/22 11/22/22 Range/Units 16:05 16:05 WBC (3.8-10.6) k/uL RBC (4.30-5.90) m/uL Hgb (13.0-17.5) gm/dL Hct (39.0-53.0) % MCV (80.0-100.0) fL MCH (25.0-35.0) pg MCHC (31.0-37.0) g/dL RDW (11.5-15.5) % Plt Count (150-450) k/uL MPV Neutrophils % % Lymphocytes % % Monocytes % % Eosinophils % % Basophils % % Neutrophils # (1.3-7.7) k/uL Lymphocytes # (1.0-4.8) k/uL Monocytes # (0-1.0) k/uL Eosinophils # (0-0.7) k/uL Basophils # (0-0.2) k/uL PT (9.0-12.0) sec INR (<1.2) Sodium 134 L (137-145) mmol/L Potassium 4.6 (3.5-5.1) mmol/L Chloride 102 (98-107) mmol/L Carbon Dioxide 23 (22-30) mmol/L Anion Gap 9 mmol/L BUN 20 (9-20) mg/dL Creatinine 1.23 (0.66-1.25) mg/dL Est GFR (CKD-EPI)AfAm 65 (>60 ml/min/1.73 sqM) Est GFR (CKD-EPI)NonAf 56 (>60 ml/min/1.73 sqM) Glucose 119 H (74-99) mg/dL Calcium 8.8 (8.4-10.2) mg/dL Total Bilirubin 3.4 H (0.2-1.3) mg/dL AST 26 (17-59) U/L ALT 26 (4-49) U/L Alkaline Phosphatase 46 (38-126) U/L Troponin I <0.012 (0.000-0.034) ng/mL Total Protein 6.6 (6.3-8.2) g/dL Albumin 3.9 (3.5-5.0) g/dL Urine Color Urine Appearance (Clear) Urine pH (5.0-8.0) Ur Specific [place] (1.001-1.035) Urine Protein (Negative) Urine Glucose (UA) (Negative) Urine Ketones (Negative) Urine Blood (Negative) Urine Nitrite (Negative) Urine Bilirubin (Negative) Urine Urobilinogen (<2.0) mg/dL Ur Leukocyte Esterase (Negative) Urine RBC (0-5) /hpf Urine WBC (0-5) /hpf Urine WBC Clumps (None) /hpf Ur Squamous Epith Cells (0-4) /hpf Urine Mucus (None) /hpf Disposition Clinical Impression: UTI (urinary tract infection) Disposition: HOME SELF-CARE Condition: Good Instructions (If sedation given, give patient instructions): Dizziness (ED), Urinary Tract Infection in Men (ED) Additional Instructions: Please return to the Emergency Department if symptoms worsen or any other concerns. Prescriptions: Ciprofloxacin 500 mg PO Q12HR 14 Days #140 ml Is patient prescribed a controlled substance at d/c from ED?: No Referrals: Arron Mendoza DO [Primary Care Provider] - 1-2 days Time of Disposition: 18:52
[2022-11-22 16:34] LABS: ALT 26 U/L (4-49); AST 26 U/L (17-59); African American GFR (CKD) 65 (>60 ml/min/1.73 sqM); Albumin 3.9 g/dL (3.5-5.0); Alkaline Phosphatase 46 U/L (38-126); Anion Gap 9 mmol/L; Blood Urea Nitrogen 20 mg/dL (9-20); Calcium 8.8 mg/dL (8.4-10.2); Carbon Dioxide 23 mmol/L (22-30); Chloride 102 mmol/L (98-107); Glucose 119 mg/dL (74-99); Non-African American GFR(CKD) 56 (>60 ml/min/1.73 sqM); Potassium 4.6 mmol/L (3.5-5.1); Sodium 134 mmol/L (137-145); Total Bilirubin 3.4 mg/dL (0.2-1.3); Total Protein 6.6 g/dL (6.3-8.2)
[2022-11-22 16:53] LABS: Appearance,Urine Turbid (Clear); Bilirubin,Urine Negative (Negative); Blood,Urine Large (Negative); Color,Urine Dark Brown; Glucose,Urine (UA) Negative (Negative); Ketones,Urine Trace (Negative); Leukocyte Esterase,Urine Large (Negative); Mucus,Urine Many /hpf; Nitrite,Urine Negative (Negative); PH, Urine 5.5 (5.0-8.0); Protein,Urine 2+ (Negative); RBC,Urine >182 /hpf (0-5); Specific Gravity,Urine 1.033 (1.001-1.035); Squamous Epithelial Cell,Urine 3 /hpf (0-4); Urobilinogen,Urine <2.0 mg/dL (<2.0); WBC,Urine 102 /hpf (0-5)
[2022-11-22] MEDS ORDERED: LEVOFLOXACIN 750MG-D5W PMX 750 MG in DEXTROSE/WATER 1 150ML.BAG IVPB STA (17:27)
--- NOTE | 2022-11-22 18:16 | CT ---
EXAMINATION TYPE: CT brain cspine wo con CT DLP: 1597.3 mGycm, Automated exposure control for dose reduction was used. DATE OF EXAM: 11/22/2022 5:39 PM COMPARISON: None. CLINICAL INDICATION:Male, 77 years old with history of dizziness; Dizziness, headache TECHNIQUE: Brain: Multiple axial CT images of the brain were obtained without IV contrast. Cspine: Axial CT images from the skull base to the inferior aspect of T2 we obtained without intraven ous contrast. Coronal and sagittal reformatted images were also reviewed. FINDINGS: Brain: Extra-axial spaces: No abnormal extra-axial fluid collections. Ventricular system: Dilatation in proportion to cerebral atrophy. Cerebral parenchyma: Cerebral atrophy. No acute intraparenchymal hemorrhage or mass effect. The lizama -white junction is well differentiated. Cerebellum: Unremarkable. Mass effect: No evidence of midline shift. Intracranial vasculature: Atherosclerotic calcifications of the intracranial vessels. Soft tissues: Normal. Calvarium/osseous structures: No depressed skull fracture. Paranasal sinuses and mastoid air cells: Clear. Visualized orbits: Orbital contents are intact. Cervical spine: Fracture: None. Osseous structures: Multilevel degenerative disc disease changes with endplate spurring and disc oste ophyte complex's. Vertebral alignment: Straightening of the alignment. Spinal canal/Neural Foramina: Disc osteophyte complexes at C4-C5 through C6-C7 with at least mild spi nal canal stenosis. Facet joint uncovertebral joint arthropathy scattered throughout the cervical spi ne with varying degrees of neural foraminal stenosis. Neck soft tissues: Prevertebral soft tissues are within normal limits. Other: The airway is patent. The lung apices are clear. IMPRESSION: 1. No acute intracranial process. 2. No evidence of cervical spine fracture. 3. Moderate multilevel degenerative disc disease.
[2022-11-22 19:22] VITALS: BP 111/55; PULSE 76; TEMP 98.4
== END 2022-11-22 19:22 | disposition home or self-care (01) ==
LOC: EC 15:46
DX: N39.0 Urinary tract infection, site not specified (principal); E78.5 Hyperlipidemia, unspecified; Z79.899 Other long term (current) drug therapy; Z87.891 Personal history of nicotine dependence
CPT/HCPCS: 36415; 93005; 80053; 84484; 85025; 85610; 81001; 72125; 70450; 99284; 96365; J1956

== ENCOUNTER → 2024-06-09 | Outpatient (CLI) | payer MEDICARE ==
--- NOTE | 2024-06-09 20:22 | MR ---
EXAMINATION TYPE: MR knee LT wo con DATE OF EXAM: 06/09/2024 COMPARISON: Outside bilateral lateral knee x-rays June 04, 2024 HISTORY: left knee pain for about a month and a half. no known injury TECHNIQUE: Multiplanar, multisequence images of the knee is performed without IV contrast. FINDINGS: MEDIAL MENISCUS: Truncated appearance to posterior horn with abnormal signal extending to inferior ar ticular surface. LATERAL MENISCUS: Anterior and posterior horns are intact without tear. CRUCIATE LIGAMENTS: The anterior and posterior cruciate ligaments are intact and unremarkable. COLLATERAL LIGAMENTS: The medial collateral ligament and lateral collateral ligament complex are inta ct. Some increased signal surrounding fluid in the medial collateral ligament. Some increased signal and thickening of the proximal iliotibial band. EXTENSOR MECHANISM: Visualized quadriceps and patellar tendons are intact. EFFUSION: Small to moderate size suprapatellar joint effusion. POPLITEAL CYST: Moderate to large sized leaking septated popliteal/tejeda cyst. TRICOMPARTMENT SPACES: Moderate narrowing and mild spurring patellofemoral compartment. Moderate narr owing and mild/moderate spurring medial tibial femoral compartment. CARTILAGE: Cartilaginous loss medial tibial femoral compartment most prominent laterally. Correlation , with areas of full-thickness cartilaginous loss along the posterior patellar pole greatest medially . BONE MARROW SIGNAL: Small area increased T2 signal anterior medial aspect of the distal medial femora l condyle coronal image 17 measuring near 1.5 cm. OTHER: No additional significant abnormality is appreciated. IMPRESSION: 1. Full-thickness tear through the posterior horn medial meniscus. 2. At least moderate degenerative changes patellofemoral and medial tibiofemoral compartment as detai led above. Small focus of abnormal bone marrow edema anteromedial aspect of the distal medial femoral condyle noted. 3. [id number] MCL sprain injury. 4. Chronic iliotibial band sprain injury. 5. Itqpn-[id number]-[id number] sized suprapatellar joint effusion. 6. Moderate to large sized leaking multi-septated popliteal cyst. [facility], , 06/09/2024 8:19 PM
== END | disposition home or self-care (01) ==
LOC: RADMRIMAIN 20:00
PROVIDERS: ATTEND Orthopaedic Surgery
DX: S83.242A Other tear of medial meniscus, current injury, left knee, initial encounter (principal); M17.12 Unilateral primary osteoarthritis, left knee; M71.22 Synovial cyst of popliteal space [Baker], left knee; X58.XXXA Exposure to other specified factors, initial encounter

== ENCOUNTER → 2024-06-18 | Outpatient (CLI) | payer MEDICARE ==
[2024-06-18 15:16] LABS: BUN/Creat Ratio 14.92 Ratio (12.00-20.00); Blood Urea Nitrogen 17.9 mg/dL (9.0-27.0); Carbon Dioxide 23.1 mmol/L (21.6-31.8); Chloride 107 mmol/L (96-109); Chol/HDL Ratio 3.75 Ratio; Glucose 103 mg/dL (70-110); LDL Cholesterol,Calculated 98.3 mg/dL (0.0-131.0); Potassium 4.4 mmol/L (3.5-5.5); Sodium 142 mmol/L (135-145)
[2024-06-18 15:17] LABS: ALT 34 U/L (10-49); AST 30 U/L (14-35); Albumin 4.2 g/dL (3.8-4.9); Albumin/Globulin Ratio 1.83 Ratio (1.60-3.17); Alkaline Phosphatase 57 U/L (41-126); Calcium 9.3 mg/dL (8.7-10.3); Globulin 2.3 g/dL (1.6-3.3); Total Bilirubin 1.7 mg/dL (0.3-1.2); Total Protein 6.5 g/dL (6.2-8.2)
[2024-06-18 15:19] LABS: NT-Pro-B-Type Natriuretic Pept 67 pg/mL (0-450)
== END | disposition home or self-care (01) ==
LOC: LABWHC1 11:08
PROVIDERS: ATTEND Internal Medicine Interventional Cardiology
DX: I35.0 Nonrheumatic aortic (valve) stenosis (principal); E78.2 Mixed hyperlipidemia
CPT/HCPCS: 36415; 80053; 80061; 83880

== ENCOUNTER → 2024-07-14 | Outpatient (CLI) | payer MEDICARE ==
[2024-07-14 10:53] LABS: Basophils # (A) 0.09 X 10*3/uL (0.00-0.10); Basophils % (A) 1.1 %; Eosinophils # (A) 0.35 X 10*3/uL (0.04-0.35); Eosinophils % (A) 4.2 %; HCT 47.2 % (39.6-50.0); HGB 15.3 g/dL (13.0-17.0); Lymphocytes # (A) 2.89 X 10*3/uL (0.90-5.00); Lymphocytes % (A) 35.1 %; MCH 30.1 pg (27.0-32.0); MCHC 32.4 g/dL (32.0-37.0); MCV 92.9 FL (80.0-97.0); Mean Platelet Volume 10.6 FL (9.5-12.2); Monocytes # (A) 0.96 X 10*3/uL (0.20-1.00); Monocytes % (A) 11.7 %; NRBC Per 100 WBC 0 X 10*3/uL (0.00-0.01); Neutrophils % (A) 47.3 %; Platelet Count 264 X 10*3/uL (140-440); RBC 5.08 X 10*6/uL (4.40-5.60); RDW 12.6 % (11.5-14.5); WBC 8.24 X 10*3/uL (4.50-10.00)
[2024-07-14 10:55] LABS: Anion Gap 9.8 mmol/L (4.00-12.00); Carbon Dioxide 27.2 mmol/L (21.6-31.8); Potassium 4.6 mmol/L (3.5-5.5)
== END | disposition home or self-care (01) ==
LOC: LABWHC1 07:45
PROVIDERS: ATTEND Orthopaedic Surgery
DX: Z01.812 Encounter for preprocedural laboratory examination (principal); M23.92 Unspecified internal derangement of left knee
CPT/HCPCS: 36415; 80051; 85025

== ENCOUNTER 2024-08-04 08:48 | Day surgery (SDC) | payer MEDICARE ==
[2024-08-02 11:41] VITALS: BMI 26.6
--- NOTE | 2024-08-03 10:14 | HP ---
HISTORY AND PHYSICAL Surgery is scheduled for 08/04/2024. HISTORY OF PRESENT ILLNESS: Mathew Chris is an 79-year-old gentleman seen with progressive left knee pain. After having treatment options discussed, he elected to proceed with left knee arthroscopy. Consent regarding the procedure was obtained. Cardiac clearance was provided by Dr. Bermudez. PAST MEDICAL HISTORY: Cardiovascular disease, hypertension, and hyperlipidemia. PAST SURGICAL HISTORY: Noncontributory. MEDICATIONS: 1. Lipitor. 2. Prevalite. ALLERGIES: None reported. SOCIAL HISTORY: Denies current tobacco use. PHYSICAL EVALUATION OF THE LEFT KNEE: Range of motion is -1/2 to 120 degrees. There is a mild to moderate effusion present. Tenderness in the medial and lateral joint lines. Positive medial Jacobo's. Ligaments stable. Hip rotation without pain. Distal neurovascular exam is intact. IMAGING DATA: Left knee radiographs revealed moderate osteoarthritic changes. MRI of left knee, medial meniscal tear. Mild osteoarthritis. Large popliteal cyst. IMPRESSION: 1. Internal derangement of left knee with medial meniscal tear. 2. Hypertension. 3. Hyperlipidemia. 4. Cardiovascular disease. PLAN: Left knee arthroscopy with partial medial meniscectomy and debridement. MMODL / IJN: [id number] /
[~2024-08-04 08:48] MED LIST changes: +HYDROmorphone 0.5 MG/0.5 ML SYRINGE IVP PRN; -LACTATED RINGERS 1,000 ML IV SCH; -LIDOCAINE 1% 20 ML VIAL (10MG/ML) FOR IV START INTRADERMA PRN
[2024-08-04] MEDS: IV FLUID CONTINUATION 1,000 ML IV ONE (09:02)
[2024-08-04] MEDS: LACTATED RINGERS 1,000 ML IV SCH (09:35)
[2024-08-04] MEDS: DEXAMETHASONE SOD PHOSPHATE 4 MG/ML 1 ML VIAL IVP STA (09:36)
[2024-08-04] MEDS: ONDANSETRON 4 MG/2 ML VIAL IVP STA (09:36)
[2024-08-04] MEDS ORDERED: fentaNYL (PF) 50 MCG/ML 2 ML AMP ONE (10:44)
[2024-08-04] MEDS ORDERED: KETOROLAC 15 MG/ML 1 ML VIAL ONE (10:44)
[2024-08-04] MEDS ORDERED: LIDOCAINE 1% INJ 10MG/ML (20 ML MDV) ONE (10:44)
[2024-08-04] MEDS ORDERED: PROPOFOL 10 MG/ML 20 ML VIAL IV ONE (10:44)
[2024-08-04] MEDS: BUPIVACAINE (PF) 0.25% 30 ML VIAL SQ ONE (11:11)
--- NOTE | 2024-08-04 11:31 | P.OP ---
Date of Procedure: 08/04/24 Preoperative Diagnosis: Internal derangement left knee Postoperative Diagnosis: 1. Tear medial and lateral meniscus left knee 2. Grade IV chondromalacia medial femoral condyle left knee 3. Reactive synovitis medial, lateral and suprapatellar compartments left knee Procedure(s) Performed: 1. Arthroscopic partial medial and lateral meniscectomy left knee 2. Arthroscopic microfracture medial femoral condyle left knee 3. Arthroscopic partial synovectomy medial, lateral and suprapatellar compartments left knee Anesthesia: JOSHA, local Surgeon: Bib Landry Estimated Blood Loss (ml): 6 Pathology: none sent Condition: stable Disposition: PACU Indications for Procedure: 79-year-old gentleman seen with progressive left knee pain. After having treatment options discussed, he elected to proceed with arthroscopy. Operative Findings: See description of procedure Description of Procedure: Patient was taken to the operative suite. Patient underwent a general anesthetic by the department of anesthesia. Patient was given preoperative antibiotics. The left lower extremity was placed in a well-padded arthroscopic leg barney. The left leg was prepped and draped in the normal sterile orthopedic fashion. A lateral parapatellar and suprapatellar incision was made. Trochars were inserted. Arthroscopy was initiated. Suprapatellar pouch revealed diffuse thick reactive synovitis. The patellofemoral joint appeared appeared to articulate congruently. There was grade I/II chondromalacia of the patellofemoral joint without significant tears. The scope was guided into the medial gutter. No loose bodies or plica were identified. The scope was then guided into the medial compartment. A medial parapatellar incision was made. Trocar inserted followed by probe. There was a complex tear involving the posterior medial meniscus. There were grade III/IV chondromalacia changes along the medial femoral condyle with some osteochondral flap tears present. There were grade II/III chondromalacia changes of the medial tibial plateau without tears. There was thick reactive synovitis anteriorly. I performed a partial medial meniscectomy getting down to stable meniscal tissue. I performed a chondroplasty of the medial femoral condyle getting down to stable osteochondral tissue. I performed a partial synovectomy decompressing the thick reactive synovitis anteriorly. I did note an area of grade IV chondromalacia/exposed bone along the weightbearing surface of the medial femoral condyle measuring about a centimeter in diameter. I reduced a 60 degree microfracture awl and I performed a microfracture to that area penetrating the bone with resultant bleeding at the microfracture site. The residual osteochondral surface was probed and was stable. The residual meniscus was stable. There was good de compression of the synovitis. Scope and probe were then guided into the intercondylar notch. Cruciates were identified, probed and found to be stable. The scope and probe were then guided into lateral compartment. There was a radial tear mid body lateral meniscus. There were grade 2, changes lateral compartment without tears. There was some reactive situs anteriorly. I performed a partial lateral meniscectomy getting down to stable meniscal tissue. I performed a partial synovectomy decompressing the reactive synovitis. The residual meniscus was stable. There was good decompression of the synovitis. The scope was in guided back into the suprapatellar compartment. I had used a motorized shaver into the suprapatellar compartment. I debrided some piecemeal fragments of meniscus that I encountered. I performed a partial synovectomy. The shaver was now removed. There was good decompression of the synovitis. Instruments were now removed from the joint. The joint was infiltrated with .25% Marcaine. Steri-Strips were applied to the portal sites. Sterile dressings were applied. The patient was placed into a ARIELA hose. No tourniquet was utilized. The patient was awakened, transferred to a bed and taken to recovery stable satisfactory condition.
[2024-08-04 11:40] VITALS: RESP 16; TEMP 97.2
[2024-08-04 12:29] VITALS: BP 139/69; PULSE 54
== END 2024-08-04 12:46 | disposition home or self-care (01) ==
LOC: OR 08:48
PROVIDERS: ATTEND Orthopaedic Surgery
DX: S83.282A Other tear of lateral meniscus, current injury, left knee, initial encounter (principal); M94.262 Chondromalacia, left knee; M65.962 Unspecified synovitis and tenosynovitis, left lower leg; I25.10 Atherosclerotic heart disease of native coronary artery without angina pectoris; E78.5 Hyperlipidemia, unspecified; I10 Essential (primary) hypertension
CPT/HCPCS: 29879; 29880; J1100; J0690; J2405; J0665

== ENCOUNTER 2024-08-14 21:20 | Emergency (ER) | payer MEDICARE ==
[2024-08-14] MEDS: IBUPROFEN 800 MG TAB PO STA (21:57)
[2024-08-14] MEDS: ACETAMINOPHEN TAB 500 MG TAB PO STA (21:57)
[2024-08-14] MEDS: SODIUM CHLORIDE 0.9% 1,000 ML IV ONE (22:16)
--- NOTE | 2024-08-14 22:35 | ED ---
General Adult HPI - General Chief complaint: Urogenital Stated complaint: fever Time Seen by Provider: 08/14/24 21:40 Source: patient, RN notes reviewed, old records reviewed Mode of arrival: ambulatory - History of Present Illness Initial comments: Patient is an 79-year-old male who presents emergency department complaining of fevers, dysuria. Symptoms started today. Has been getting fevers and chills as well as dysuria at this evening. Does have a history of UTIs. Has a history of prostate enlargement. States that he recently had arthroscopic knee surgery on his left knee within the last week and he did have a Powers catheter placed at that time. States that the knee feels fine with no redness, discharge, pain. But he is concerned that the Powers catheter may have introducing infection into his bladder. He denies sick contacts. Denies any cough, chest pain. Has no other acute complaints at this time. Presents for further evaluation at this time. Does follow-up with urology Dr. Del Rio. - Related Data Home Medications Medication Instructions Recorded Confirmed Atorvastatin [Lipitor] 5 mg PO DAILY 09/06/22 08/04/24 Aspirin 81 mg PO DAILY 08/02/24 08/04/24 Prevalite (Unknown Med) 1 dose PO DAILY 08/02/24 08/04/24 Previous Rx's Medication Instructions Recorded traMADol HCl [Ultram] 50 mg PO Q6H PRN #12 tab 08/04/24 Ciprofloxacin HCl [Cipro] 500 mg PO Q12HR 7 Days #14 tab 08/14/24 Allergies Allergy/AdvReac Type Severity Reaction Status Date / Time No Known Allergies Allergy Verified 08/04/24 08:58 Review of Systems ROS Statement: Those systems with pertinent positive or pertinent negative responses have been documented in the HPI. Review of Systems: CONST: Denies fever EYES: Denies blurry vision ENT: Denies nasal congestion C/V: Denies Chest pain RESP: Denies shortness of breath GI: Denies abdominal pain : Endorses dysuria SKIN: Denies rash. MSK: Denies joint pain. NEURO: Denies headache ROS Other: All systems not noted in ROS Statement are negative. Past Medical History Past Medical History: Cancer, Hyperlipidemia, Pneumonia, Prostate Disorder, Skin Disorder Additional Past Medical History / Comment(s): IBS, COLON CANCER, rash all over hands burn and itch (just happens on occasion) History of Any Multi-Drug Resistant Organisms: None Reported Past Surgical History: Bowel Resection, Cholecystectomy, Orthopedic Surgery, Prostate Surgery Additional Past Surgical History / Comment(s): ARTHROSCOPY RIGHT KNEE, PROSTATE SURGERY X 3, BILAT CATARACTS REMOVED, COLONOSCOPY, COLON RESECTION R/T COLON CANCER Past Anesthesia/Blood Transfusion Reactions: No Reported Reaction Past Psychological History: No Psychological Hx Reported Smoking Status: Never smoker Past Alcohol Use History: None Reported - Past Family History Brother(s) Family Medical History: Coronary Artery Disease (CAD), Myocardial Infarction (IN) Father Additional Family Medical History / Comment(s): AORTIC ANEURYSM, NEVER RUPTURED Sister(s) Family Medical History: Cancer Additional Family Medical History / Comment(s): SISTER # 1 UTERINE CANCER. SISTER #2 BREAST CANCER General Exam - General Exam Comments Initial Comments: General: Appears in no acute distress. Febrile. HEAD: Normal with no signs of head trauma. EYES: EOMI ENT: Hearing grossly intact, normal oropharynx. RESPIRATORY: Clear breath sounds bilaterally. No wheezes, rales, or rhonchi. C/V: Regular rate and rhythm. S1 and S2 auscultated, no edema, peripheral pulses 2+ and intact throughout ABD: Abd is soft, nontender, nondistended EXT: Normal range of motion, no obvious deformity. This includes the recently surgical left knee. No obvious discharge from the surgical incisions. No erythema or warmth. No concern for infected left knee. Normal range of motion. No pain. SKIN: No rashes or lesions observed on exposed skin. NEURO: Alert and oriented x 4. Course Vital Signs 08/14/24 08/14/24 08/14/24 21:29 22:20 22:47 Temperature 99.3 F 98.0 F Pulse Rate 89 79 Respiratory 18 18 Rate Blood Pressure 118/67 126/58 O2 Sat by Pulse 95 94 L Oximetry 08/14/24 23:55 Temperature 98.5 F Pulse Rate 70 Respiratory 16 Rate Blood Pressure 114/57 O2 Sat by Pulse 94 L Oximetry Medical Decision Making - Medical Decision Making Was pt. sent in by a medical professional or institution (, PA, CALENDER WIND UP HELPER, urgent care, hospital, or halfway...) When possible be specific @ -No Did you speak to anyone other than the patient for history (EMS, parent, family, police, friend...)? What history was obtained from this source @ -No Did you review nursing and triage notes (agree or disagree)? Why? @ -I reviewed and agree with nursing and triage notes Were old charts reviewed (outside hosp., previous admission, EMS record, old EKG, old radiological studies, urgent care reports/EKG's, halfway records)? Report findings @ -No old charts were reviewed Differential Diagnosis (chest pain, altered mental status, abdominal pain women, abdominal pain men, vaginal bleeding, weakness, fever, dyspnea, syncope, headache, dizziness, GI bleed, back pain, seizure, CVA, palpatations, mental health, musculoskeletal)? @ -UTI, viral syndrome, dehydration, TANJA. This list is not all inclusive. EKG interpreted by me (3pts min.). @ -None done X-rays interpreted by me (1pt min.). @ -None done CT interpreted by me (1pt min.). @ -None done U/S interpreted by me (1pt. min.). @ -None done What testing was considered but not performed or refused? (CT, X-rays, U/S, labs)? Why? @ -None What meds were considered but not given or refused? Why? @ -None Did you discuss the management of the patient with other professionals (professionals i.e. , PA, CALENDER WIND UP HELPER, lab, RT, psych nurse, social work instructor, city solicitor, teacher, surveillance officer, case aide)? Give summary @ -No Was smoking cessation discussed for >3mins.? @ -No Was critical care preformed (if so, how long)? @ -No Were there social determinants of health that impacted care today? How? (Homelessness, low income, unemployed, alcoholism, drug addiction, transportation, low edu. Level, literacy, decrease access to med. care, fci, rehab)? @ -No Was there de-escalation of care discussed even if they declined (Discuss DNR or withdrawal of care, Hospice)? DNR status @ -No What co-morbidities impacted this encounter? (DM, HTN, Smoking, COPD, CAD, Cancer, CVA, ARF, Chemo, Hep., AIDS, mental health diagnosis, sleep apnea, morbid obesity)? @ -None Was patient admitted / discharged? Hospital course, mention meds given and route, prescriptions, significant lab abnormalities, going to OR and other pertinent info. @ -Patient presents after surgery on left knee for fevers, dysuria. Did have Powers catheter placed during the surgery procedure. Has had fevers at home as well. Has no other symptoms. We will obtain urinalysis, basic labs. Postvoid bladder scan was within acceptable limits at 70 cc of urine. Patient symptomatically treated with IV fluids, Motrin, Tylenol. Patient was in agreement this plan. No concern for left knee infection. Patient's laboratory studies returned remarkable for leukocytosis of 13. Urinalysis does show a UTI with leukocyte esterase, WBCs, RBCs and bacteria. Urine culture will be obtained and sent. I discussed results with patient. Patient will be given a dose of IV Rocephin as well as started on ciprofloxacin. He will be given a prescription. Recommended follow-up with his urologist in the coming days. Return to the ER for any worsening symptoms. They were in agreement this plan. Patient's fevers improved and vital signs are within acceptable limits. I will provide the patient with a prescription for ciprofloxacin. I instructed the patient to follow up with their PCP in the next 1-3 days.. I explained that the patient should return to the emergency department if they experience any worsening symptoms. Strict return precautions were discussed with the patient. The patient expressed understanding of these instructions. I answered all questions that the patient had. The patient was discharged home in good conditi on with their prescriptions and follow up information. Undiagnosed new problem with uncertain prognosis? @ -No Drug Therapy requiring intensive monitoring for toxicity (Heparin, Nitro, Insulin, Cardizem)? @ -No Were any procedures done? @ -No Diagnosis/symptom? @ -UTI Acute, or Chronic, or Acute on Chronic? @ -Acute Uncomplicated (without systemic symptoms) or Complicated (systemic symptoms)? @ -Uncomplicated Side effects of treatment? @ -None Exacerbation, Progression, or Severe Exacerbation] @ -No Poses a threat to life or bodily function? @ -Unlikely at this time - Lab Data Result diagrams: 08/14/24 22:16 08/14/24 22:16 Lab Results 08/14/24 08/14/24 08/14/24 Range/Units 22:08 22:09 22:16 WBC 13.9 H (3.8-10.6) k/uL RBC 4.97 (4.30-5.90) m/uL Hgb 14.8 (13.0-17.5) gm/dL Hct 44.7 (39.0-53.0) % MCV 90.0 (80.0-100.0) fL MCH 29.7 (25.0-35.0) pg MCHC 33.0 (31.0-37.0) g/dL RDW 12.4 (11.5-15.5) % Plt Count 224 (150-450) k/uL MPV 7.7 Neutrophils % 82 % Lymphocytes % 8 % Monocytes % 8 % Eosinophils % 1 % Basophils % 0 % Neutrophils # 11.4 H (1.3-7.7) k/uL Lymphocytes # 1.1 (1.0-4.8) k/uL Monocytes # 1.2 H (0-1.0) k/uL Eosinophils # 0.1 (0-0.7) k/uL Basophils # 0.0 (0-0.2) k/uL Sodium (137-145) mmol/L Potassium (3.5-5.1) mmol/L Chloride (98-107) mmol/L Carbon Dioxide (22-30) mmol/L Anion Gap mmol/L BUN (9-20) mg/dL Creatinine (0.66-1.25) mg/dL Est GFR (CKD-EPI)AfAm (>60 ml/min/1.73 sqM) Est GFR (CKD-EPI)NonAf (>60 ml/min/1.73 sqM) Glucose (74-99) mg/dL Calcium (8.4-10.2) mg/dL Total Bilirubin (0.2-1.3) mg/dL AST (17-59) U/L ALT (4-49) U/L Alkaline Phosphatase (38-126) U/L Total Protein (6.3-8.2) g/dL Albumin (3.5-5.0) g/dL Urine Color Yellow Urine Appearance Cloudy (Clear) Urine pH 7.0 (5.0-8.0) Ur Specific [place] 1.021 (1.001-1.035) Urine Protein 1+ H (Negative) Urine Glucose (UA) Negative (Negative) Urine Ketones 1+ H (Negative) Urine Blood Moderate H (Negative) Urine Nitrite Negative (Negative) Urine Bilirubin Negative (Negative) Urine Urobilinogen <2.0 (<2.0) mg/dL Ur Leukocyte Esterase Large H (Negative) Urine RBC 55 H (0-5) /hpf Urine WBC >182 H (0-5) /hpf Ur Squamous Epith Cells 1 (0-4) /hpf Urine Bacteria Rare H (None) /hpf Urine Mucus Rare H (None) /hpf Influenza Type A (PCR) Not Detected (Not Detectd) Influenza Type B (PCR) Not Detected (Not Detectd) RSV (PCR) Not Detected (Not Detectd) SARS-CoV-2 (PCR) Not Detected (Not Detectd) 08/14/24 Range/Units 22:16 WBC (3.8-10.6) k/uL RBC (4.30-5.90) m/uL Hgb (13.0-17.5) gm/dL Hct (39.0-53.0) % MCV (80.0-100.0) fL MCH (25.0-35.0) pg MCHC (31.0-37.0) g/dL RDW (11.5-15.5) % Plt Count (150-450) k/uL MPV Neutrophils % % Lymphocytes % % Monocytes % % Eosinophils % % Basophils % % Neutrophils # (1.3-7.7) k/uL Lymphocytes # (1.0-4.8) k/uL Monocytes # (0-1.0) k/uL Eosinophils # (0-0.7) k/uL Basophils # (0-0.2) k/uL Sodium 131 L (137-145) mmol/L Potassium 4.2 (3.5-5.1) mmol/L Chloride 98 (98-107) mmol/L Carbon Dioxide 22 (22-30) mmol/L Anion Gap 11 mmol/L BUN 15 (9-20) mg/dL Creatinine 1.09 (0.66-1.25) mg/dL Est GFR (CKD-EPI)AfAm 74 (>60 ml/min/1.73 sqM) Est GFR (CKD-EPI)NonAf 64 (>60 ml/min/1.73 sqM) Glucose 124 H (74-99) mg/dL Calcium 8.8 (8.4-10.2) mg/dL Total Bilirubin 2.5 H (0.2-1.3) mg/dL AST 24 (17-59) U/L ALT 20 (4-49) U/L Alkaline Phosphatase 52 (38-126) U/L Total Protein 6.5 (6.3-8.2) g/dL Albumin 4.0 (3.5-5.0) g/dL Urine Color Urine Appearance (Clear) Urine pH (5.0-8.0) Ur Specific [place] (1.001-1.035) Urine Protein (Negative) Urine Glucose (UA) (Negative) Urine Ketones (Negative) Urine Blood (Negative) Urine Nitrite (Negative) Urine Bilirubin (Negative) Urine Urobilinogen (<2.0) mg/dL Ur Leukocyte Esterase (Negative) Urine RBC (0-5) /hpf Urine WBC (0-5) /hpf Ur Squamous Epith Cells (0-4) /hpf Urine Bacteria (None) /hpf Urine Mucus (None) /hpf Influenza Type A (PCR) (Not Detectd) Influenza Type B (PCR) (Not Detectd) RSV (PCR) (Not Detectd) SARS-CoV-2 (PCR) (Not Detectd) Disposition Clinical Impression: UTI (urinary tract infection) Disposition: HOME SELF-CARE Condition: Good Instructions (If sedation given, give patient instructions): Urinary Tract Infection in Men (ED) Prescriptions: Ciprofloxacin HCl [Cipro] 500 mg PO Q12HR 7 Days #14 tab Is patient prescribed a controlled substance at d/c from ED?: No Referrals: Arron Mendoza DO [Primary Care Provider] - 1-2 days Time of Disposition: 23:35
[2024-08-14 22:38] LABS: Basophils % (A) 0 %; Eosinophils # (A) 0.1 k/uL (0-0.7); Eosinophils % (A) 1 %; HCT 44.7 % (39.0-53.0); HGB 14.8 gm/dL (13.0-17.5); Lymphocytes # (A) 1.1 k/uL (1.0-4.8); Lymphocytes % (A) 8 %; MCH 29.7 pg (25.0-35.0); Mean Platelet Volume 7.7; Monocytes # (A) 1.2 k/uL (0-1.0); Monocytes % (A) 8 %; Neutrophils # (A) 11.4 k/uL (1.3-7.7); Neutrophils % (A) 82 %; Platelet Count 224 k/uL (150-450); RBC 4.97 m/uL (4.30-5.90); RDW 12.4 % (11.5-15.5); WBC 13.9 k/uL (3.8-10.6)
[2024-08-14 22:48] LABS: ALT 20 U/L (4-49); AST 24 U/L (17-59); African American GFR (CKD) 74 (>60 ml/min/1.73 sqM); Alkaline Phosphatase 52 U/L (38-126); Anion Gap 11 mmol/L; Blood Urea Nitrogen 15 mg/dL (9-20); Calcium 8.8 mg/dL (8.4-10.2); Carbon Dioxide 22 mmol/L (22-30); Chloride 98 mmol/L (98-107); Glucose 124 mg/dL (74-99); Non-African American GFR(CKD) 64 (>60 ml/min/1.73 sqM); Potassium 4.2 mmol/L (3.5-5.1); Sodium 131 mmol/L (137-145); Total Bilirubin 2.5 mg/dL (0.2-1.3); Total Protein 6.5 g/dL (6.3-8.2)
[2024-08-14 23:09] LABS: Influenza A Not Detected (Not Detectd); Influenza B Not Detected (Not Detectd); RSV Not Detected (Not Detectd)
[2024-08-14 23:11] LABS: Appearance,Urine Cloudy (Clear); Bacteria,Urine Rare /hpf; Bilirubin,Urine Negative (Negative); Blood,Urine Moderate (Negative); Color,Urine Yellow; Glucose,Urine (UA) Negative (Negative); Ketones,Urine 1+ (Negative); Leukocyte Esterase,Urine Large (Negative); Mucus,Urine Rare /hpf; Nitrite,Urine Negative (Negative); Protein,Urine 1+ (Negative); RBC,Urine 55 /hpf (0-5); Specific Gravity,Urine 1.021 (1.001-1.035); Squamous Epithelial Cell,Urine 1 /hpf (0-4); Urobilinogen,Urine <2.0 mg/dL (<2.0); WBC,Urine >182 /hpf (0-5)
[2024-08-14] MEDS: CIPROFLOXACIN HCL 500 MG TAB PO STA (23:48)
[2024-08-14] MEDS: cefTRIAXone IN SWFI 1,000 MG/10 ML SYRINGE IVP STA (23:49)
[2024-08-14 23:56] VITALS: BP 114/57; PULSE 70; RESP 16; TEMP 98.5
== END 2024-08-14 23:55 | disposition home or self-care (01) ==
LOC: EC 21:20
DX: N39.0 Urinary tract infection, site not specified (principal)
CPT/HCPCS: 51798; 36415; 80053; 85025; 81001; 87636; 99284; 96374; 96361; J0696; 87086